=== PATIENT | female | born 1945 | race Caucasian/White ===

== ENCOUNTER 2019-03-11 13:39 | Emergency (ER) | payer MEDICARE, OTHER ==
[~2019-03-11] VITALS: Ht 145 cm; Wt 48.4 kg
--- NOTE | 2019-03-11 14:32 | ED Lower Extremity ---
General Chief Complaint: Lower Extremity Stated Complaint: FALL, WEAKNESS Source: patient Exam Limitations: clinical condition (patient reports she fell while transferring from her wheelchair to a chair sustaining a ground-level fall injuring her left hip however she was tachycardic upon admission since she has some mild precordial chest discomfort and cardiac workup was also provided.) History of Present Illness Date Seen by Provider: Mar 11, 2019 Time Seen by Provider: 13:45 Initial Comments As above patient has fallen during transfer. Patient has injured right hip and right knee although she has no pain on palpation and no ecchymoses but also had tachycardia and cardiac evaluation was provided. Onset: just prior to arrival Pain/Injury Location: right hip, right knee (no evidence of ecchymoses and no pain on range of motion.) Method of Injury: fell Modifying Factors: Improves With Movement (he should also has a left above-knee amputation injury as made her capacity for movement significantly impaired) Allergies and Home Medications Allergies Coded Allergies: No Known Drug Allergies (Unverified , 03/11/19) Patient Home Medication List Home Medication List Reviewed: Yes Review of Systems Constitutional: weakness EENTM: hearing loss (chronic) Respiratory: dyspnea on exertion (initially denied but then reported some chest discomfort and shortness of breath in the emergency room) Cardiovascular: chest pain (initially denied but then reported some chest discomfort in the emergency room) Gastrointestinal: no symptoms reported Genitourinary: no symptoms reported : No Musculoskeletal: back pain, joint pain (right hip and right knee patient has a above-knee amputation on the left), muscle pain (right lower extremity), muscle weakness (patient has bruising on both hands where she says she runs her wheelchair into the door frames) Skin: change in color (bilateral ecchymoses on both hands chronic bumping into the doorframe's) Psychiatric/Neurological: Anxiety (reported that she wanted us to give her some food when she got to the emergency room) Past Fzawukd-Clguuu-Rdqqkg Hx Patient Social History Alcohol Use: Regular Use (and history of alcohol dependence with uncomplicated withdrawal and alcoholic hepatitis without ascites and acute alcoholic gastritis without hemorrhage) Recreational Drug Use: No Smoking Status: Current Everyday Smoker Past Medical History Abdominal (colonoscopy June 2011), Orthopedic (Replacement 2010 femur fracture 2010 prior femur fracture 23 years ago), Rectal (rectal surgery 2011 colostomy 2010 partial hemicolectomy with reanastomosis 2010) Respiratory: Yes COPD (patient has been smoking one pack per day for the past 50 years) Aneurysm (thoracic aortic aneurysm without rupture also abdominal aortic aneurysm without rupture) Neurological: Yes (alcohol withdrawal syndrome) Dementia : No Renal Failure (right kidney disease with acute kidney injury in the past) Gastrointestinal: Yes Irritable Bowel Musculoskeletal: Yes Arthritis, Back Injury Are Your Blood Sugars Over 250: No HEENT: Yes Loss of Vision: Denies Hearing Impairment: Hard of Hearing Anxiety (currently on lorazepam 0.5 mg and has a history of alcohol use disorder ) Integumentary: No Blood Disorders: No Adverse Reaction/Blood Tranf: No Family Medical History CAD Over 55 Years Old (father and brother), Diabetes (sister), Stroke (father and brother) Physical Exam Vital Signs Vital Signs - First Documented 03/11/19 13:40 Temp 36.3 Pulse 113 Resp 16 B/P (MAP) 128/68 (88) Pulse Ox 94 O2 Delivery Room Air Capillary Refill : Less than 1 second Height, Weight, BMI Height: '" Weight: lbs. oz. kg; BMI Method: General Appearance: mild distress (secondary to right hip and right knee pain patient also developed tachycardia and some shortness of breath while in the emergency room cardiac evaluation is pending) HEENT: PERRL/EOMI, normal ENT inspection Neck: non-tender, full range of motion, supple Cardiovascular: regular rate, rhythm, no edema (of the right leg), no gallop, no JVD, no murmur Respiratory: chest non-tender, crackles (secondary to chronic COPD for 50 pack years of smoking), rales (bilateral lobes posterior with deep breathing) Gastrointestinal: normal bowel sounds, non tender, hepatomegaly (and very to chronic alcohol use disorder) Back: normal inspection, no CVA tenderness, decreased range of motion, vertebral tenderness (chronic spasms in the low back) Hips: left hip non-tender, left hip no evidence of injury; right hip limited range of motion (minimal reduction and no pain on flexion and extension and rotation of the right hip), right hip soft tissue tenderness (generalized soft tissue tenderness on the right hip) Knees: right knee soft tissue tenderness (no osseous abnormality however patient does have some tenderness on the lateral aspect of the right knee); left knee other (above-knee amputation left side) Reflexes: 1+ knee (R) 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, alert, oriented x 3 Skin: normal color, warm/dry Lymphatic: no adenopathy Progress/Results/Core Measures Results/Orders Lab Results Laboratory Tests Test 03/11/19 14:30 Range/Units White Blood Count 8.6 4.3-11.0 10^3/uL Red Blood Count 4.94 4.35-5.85 10^6/uL Hemoglobin 13.2 11.5-16.0 G/DL Hematocrit 41 35-52 % Mean Corpuscular Volume 84 80-99 FL Mean Corpuscular Hemoglobin 27 25-34 PG Mean Corpuscular Hemoglobin Concent 32 32-36 G/DL Red Cell Distribution Width 15.1 H 10.0-14.5 % Platelet Count 284 130-400 10^3/uL Mean Platelet Volume 10.1 7.4-10.4 FL Neutrophils (%) (Auto) 65 42-75 % Lymphocytes (%) (Auto) 24 12-44 % Monocytes (%) (Auto) 9 0-12 % Eosinophils (%) (Auto) 1 0-10 % Basophils (%) (Auto) 1 0-10 % Neutrophils # (Auto) 5.6 1.8-7.8 X 10^3 Lymphocytes # (Auto) 2.0 1.0-4.0 X 10^3 Monocytes # (Auto) 0.8 0.0-1.0 X 10^3 Eosinophils # (Auto) 0.1 0.0-0.3 10^3/uL Basophils # (Auto) 0.1 0.0-0.1 10^3/uL Sodium Level 139 135-145 MMOL/L Potassium Level 4.3 3.6-5.0 MMOL/L Chloride Level 99 98-107 MMOL/L Carbon Dioxide Level 27 21-32 MMOL/L Anion Gap 13 5-14 MMOL/L Blood Urea Nitrogen 16 7-18 MG/DL Creatinine 0.55 L 0.60-1.30 MG/DL Estimat Glomerular Filtration Rate > 60 BUN/Creatinine Ratio 29 Glucose Level 93 70-105 MG/DL Calcium Level 9.8 8.5-10.1 MG/DL Corrected Calcium 9.9 8.5-10.1 MG/DL Magnesium Level 1.9 1.6-2.4 MG/DL Total Bilirubin 0.4 0.1-1.0 MG/DL Aspartate Amino Transf (AST/SGOT) 34 5-34 U/L Alanine Aminotransferase (ALT/SGPT) 18 0-55 U/L Alkaline Phosphatase 128 40-136 U/L Troponin I < 0.30 <0.30 NG/ML Total Protein 7.3 6.4-8.2 GM/DL Albumin 3.9 3.2-4.5 GM/DL My Orders Orders - ESPERANZA RAMIRES DO Ekg Tracing (03/11/19 14:09) Hip 2-3 View Right (03/11/19 14:09) Cbc With Automated Diff (03/11/19 14:25) Magnesium (03/11/19 14:25) Chest 1 View Ap/Pa Only (03/11/19 14:25) Comprehensive Metabolic Panel (03/11/19 14:25) Ed Iv/Invasive Line Start (03/11/19 14:25) Troponin I Fs (03/11/19 14:25) Vital Signs/I&O 03/11/19 13:40 Temp 36.3 Pulse 113 Resp 16 B/P (MAP) 128/68 (88) Pulse Ox 94 O2 Delivery Room Air Initial ECG Impression Date: Mar 11, 2019 Initial ECG Impression Time: 14:23 (Sinus tachycardia abnormal R-wave progression with early transition otherwise normal) Counseling-Symptomatic: 3-10 Minutes (patient has a [id number] history of tobacco use and is not interested in tobacco cessation) Departure Impression Primary Impression: Strain of hip Additional Impression: Knee strain Disposition: 01 HOME, SELF-CARE Condition: Stable Departure-Patient Inst. Decision time for Depature: 16:44 Referrals: LIUDMILA GANDARA MD Patient Instructions: Hip Pain, Knee Sprain (DC) Add. Discharge Instructions: Cardiac evaluation for tachycardia shows no signs of ischemic heart disease. Patient has negative x-rays for fracture or dislocation of the hip or knee. On clinical examination patient has slight pain in the hip and knee consistent with a mild strain or sprain. Fall prevention has been emphasized to the patient. Patient should go home hydrate she can use acetaminophen for discomfort of her knee or hip and practice fall prevention. Follow up with Dr. GANDARA. All discharge instructions reviewed with patient and/or family. Voiced understanding. ESPERANZA RAMIRES DO Mar 11, 2019 14:32
[2019-03-11 15:05] LABS: HEMATOCRIT 41 % (35-52); HEMOGLOBIN 13.2 G/DL (11.5-16.0); MEAN CORPUSCULAR HEMOGLOBIN 27 PG (25-34); WHITE BLOOD COUNT 8.6 10^3/uL (4.3-11.0)
[2019-03-11 15:06] LABS: BASOPHILS # (AUTO) 0.1 10^3/uL (0.0-0.1); BASOPHILS % (AUTO) 1 % (0-10); EOSINOPHILS # (AUTO) 0.1 10^3/uL (0.0-0.3); EOSINOPHILS % (AUTO) 1 % (0-10); LYMPHOCYTES % (AUTO) 24 % (12-44); MEAN CORPUSCULAR HGB CONC 32 G/DL (32-36); MEAN CORPUSCULAR VOLUME 84 FL (80-99); MEAN PLATELET VOLUME 10.1 FL (7.4-10.4); MONOCYTES # (AUTO) 0.8 X 10^3 (0.0-1.0); MONOCYTES % (AUTO) 9 % (0-12); NEUTROPHILS # (AUTO) 5.6 X 10^3 (1.8-7.8); NEUTROPHILS % (AUTO) 65 % (42-75); PLATELET COUNT 284 10^3/uL (130-400); RED CELL DISTRIBUTION WIDTH 15.1 % (10.0-14.5)
[2019-03-11 15:15] LABS: ALKALINE PHOSPHATASE 128 U/L (40-136); BILIRUBIN,TOTAL 0.4 MG/DL (0.1-1.0); BUN/CREATININE RATIO 29; CALCIUM 9.8 MG/DL (8.5-10.1); CARBON DIOXIDE 27 MMOL/L (21-32); CHLORIDE 99 MMOL/L (98-107); CREATININE SERUM 0.55 MG/DL (0.60-1.30); GFR ESTIMATED > 60; GLUCOSE 93 MG/DL (70-105); MAGNESIUM 1.9 MG/DL (1.6-2.4); POTASSIUM 4.3 MMOL/L (3.6-5.0); SODIUM 139 MMOL/L (135-145)
[2019-03-11 15:16] LABS: ALANINE AMINOTRANSFERASE 18 U/L (0-55); ALBUMIN 3.9 GM/DL (3.2-4.5); TOTAL PROTEIN 7.3 GM/DL (6.4-8.2)
--- NOTE | 2019-03-11 15:31 | Diagnostic Imaging Report ---
Indication: Fall with chest pain and cough. Comparison: None. Discussion: Single portable upright view of the chest was obtained. Medical devices projected over the right heart. Normal heart size. No focal consolidation, pleural fluid or pneumothorax. No acute osseous abnormality in this single view. Impression: Negative portable chest. Dictated by: Dictated on workstation # [id number]
--- NOTE | 2019-03-11 15:36 | Diagnostic Imaging Report ---
Indication: Fall with right hip pain. Comparison: None. Discussion: AP view of the pelvis and two views of the right hip were obtained. No displaced fracture identified. Postoperative changes are noted within both hips. Bones are markedly osteopenic. Soft tissues are unremarkable. Impression: No acute fracture identified. Dictated by: Dictated on workstation # [id number]
[2019-03-11 17:00] VITALS: BP 118/58
== END 2019-03-11 17:00 | disposition home or self-care (01) ==
LOC: ER FS 13:41
DX: S76.011A Strain of muscle, fascia and tendon of right hip, initial encounter (principal); S86.911A Strain of unspecified muscle(s) and tendon(s) at lower leg level, right leg, initial encounter; F03.90 Unspecified dementia, unspecified severity, without behavioral disturbance, psychotic disturbance, mood disturbance, and anxiety; K58.9 Irritable bowel syndrome, unspecified; J44.9 Chronic obstructive pulmonary disease, unspecified; F41.9 Anxiety disorder, unspecified; Z89.612 Acquired absence of left leg above knee; Z82.49 Family history of ischemic heart disease and other diseases of the circulatory system; W05.0XXA Fall from non-moving wheelchair, initial encounter
CPT/HCPCS: 36415; 71045; 73502; 80053; 83735; 84484; 85025; 93005

== ENCOUNTER 2019-09-27 07:52 | Emergency (ER) | payer MEDICARE, OTHER ==
[~2019-09-27] VITALS: Ht 152 cm; Wt 55.0 kg
--- OUTSIDE RECORDS SUMMARY | 2019-09-27 08:26 | XMS REPORT ---
Author Author Tracy GANDARA Organization [facility] Address [address] [place] [address] Care Team Providers Care Tig Welder Name Role Phone LIUDMILA GANDARA Unavailable PROBLEMS Type Condition ICD9-CM Code [id number] Code Onset Dates Condition S tatus SNOMED Code Problem Compression fracture of thoracic spine, non-trau matic, sequela M48.54XS Oct, Active 3901442 Problem Multiple closed fractures of ribs of right side S22.41XA Oct, Active Problem Pressure ulcer of contiguous region involving back and right buttock, stage 3 L89.43 Oct, Active Problem Anemia D64.9 Feb, Active 8844505 00 Problem History of alcohol abuse Z87.898 Feb, Ac tive 011015259 Problem Acute liver failure without hepatic coma K72.00 Oct, Active 627280728 Problem Lower urinary tract infectious disease N39.0 0 Apr, Active 5091763 Problem Abdominal aortic aneurysm (AAA) without rupture I71.4 Dec, Active 27122246 Problem [place] (acute kidney injury) N17.9 Oct, A ctive 27331219 Problem Acute alcoholic gastritis without hemorrhage K2 9.20 Jul, Active 9665469 Problem Alcohol dependence with uncomplicated withdrawal F10.230 Jul, Active 533186753 Problem Thoracic aortic aneurysm without rupture I71.2 Jul, Active 91358879 Problem Weakness generalized R53.1 Apr, Active 47421668 Problem Vitamin D deficiency E55.9 07 Mar, 2010 Active 56350006 Problem Osteoporosis M81.0 Feb, Active 6485 9006 Problem Elevated liver enzymes R74.8 16 Mar, 2010 Acti ve 798439096 Problem Panlobular emphysema J43.1 Jul, Active 1657398 Problem Status post partial colectomy Z90.49 14 Mar, 11 Active 999037708 Problem Hypokalemia E87.6 02 Apr, 2011 Active 79101 004 Problem Arterial occlusion, 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 08 S ep, 2018 Active 857341003426264 Problem Traumatic rhabdomyolysis T79.6XXA 08 Oct, 2017 Ac tive 557592064 Problem Anxiety F41.9 27 Dec, 2014 Active 0820129 2 Problem Tobacco use Z72.0 09 Dec, 2016 Active 44361 3000 Problem Alcoholic hepatitis without ascites K70.10 27 , 2017 Active 0758805 Problem Centrilobular emphysema J43.2 10 Dec, 2016 Act digna 60280113 ALLERGIES No Information ENCOUNTERS Encounter Location Date Diagnosis [facility] [address] [id number] Oct, [facility] [address] [address] Sep, [facility] [address] [address] Aug, [facility] [place] [address] [address] Jul, [facility] [address] [facility] [place] [address] June, [facility] [address] [address] June, [facility] [address] [facility] [place] [address] June, [facility] [address] [facility] [place] [address] June, Bilateral impacted cerumen H61.23 and Ri ght ear pain H92.01 [facility] [address] [facility] [place] [address] June, Cerumen impaction H61.20 [facility] [address] [address] May, [facility] [address] [address] May, [facility] [address] [address] Apr, [address] [address] Apr, [facility] [address] [id number] [address] [place] [phone] Mar, [facility] [address] [id number] [address] [place] [phone] Mar, [facility] [address] [id number] [address] [place] [phone] Jan, [facility] [address] [id number] [address] [place] [phone] Jan, IMMUNIZATIONS No Known Immunizations SOCIAL HISTORY Never Assessed REASON FOR VISIT medication refill PLAN OF CARE VITAL SIGNS MEDICATIONS Medication Instructions Dosage Frequency Start Date End Date Duration S tatus Ventolin HFA 108 (90 Base) MCG/ACT Inhalation every 6 hrs 2 puffs a s needed 6h Apr, 30 days Active Lorazepam 0.5 MG Orally 4 times a day 1 tablet as needed 6h Jan, 28 days Active RESULTS No Results PROCEDURES No Known procedures INSTRUCTIONS MEDICATIONS ADMINISTERED No Known Medications MEDICAL (GENERAL) HISTORY Type Description Date Medical History peripheral artery disease Medical History COPD Medical History Osteopurosis Medical History 2 aneurysms Surgical History T&A Surgical History Fractured Femoral Cap Surgery right side Surgical History Femur surgery, left side Surgical History 2 colon resections Surgical History Tumor removal from Left Lung Surgical History illiac Stent Surgical History Femoral Artereal Bypass Surgical History Left Leg Amputation Hospitalization History See Surgeries
--- OUTSIDE RECORDS SUMMARY | 2019-09-27 08:26 | XMS REPORT | Continuity of Care Document ---
Author Organization Unknown Address Unknown Phone Unavailable Allergies Active Description Code Type Severity Reaction Onset Reported/Identified Relationship to Patient Clinical Status Yes No Known Drug Allergies [id number] Drug Allergy Unknown N/A 03/11/2019 Medications There is no data. Problems Date Dx Coded Attending Type Code Diagnosis Diagnosed By 03/11/2019 ESPERANZA RAMIRES DO, Ot F03.90 UNSPECIFIED DEMENTIA WITHOUT BEHAVIORAL [facility] F[facility].9 ANXIETY DISORDER, UNSPECIFIED 03/11/2019 [facility] ESPERANZA Ot J44.9 CHRONIC OBSTRUCTIVE PULMONARY DISEASE, U 03/11/2019 [facility] Ot K58.9 IRRITABLE BOWEL SYNDROME WITHOUT DIARRHE 03/11/2019 [facility] Ot R53.1 WEAKNESS 03/11/2019 [facility] Ot S76.011A STRAIN OF MUSCLE, FASCIA AND TENDON OF R 03/11/2019 [facility] Ot S86.911A STRAIN OF UNSP MUSC/TEND AT LOWER LEG LE 03/11/2019 [facility] Ot W05.0XXA FALL FROM NON-MOVING WHEELCHAIR, INITIAL 03/11/2019 [facility] ESPERANZA [place] Ot Z82.49 FAMILY HX OF ISCHEM HEART DIS AND OTH DI 03/11/2019 [facility] Ot Z89.612 ACQUIRED ABSENCE OF LEFT LEG ABOVE KNEE 03/15/2019 [facility] Ot F03.90 UNSPECIFIED DEMENTIA WITHOUT BEHAVIORAL 03/15/2019 [facility] Ot F41.9 ANXIETY DISORDER, UNSPECIFIED 03/15/2019 [facility] Ot J44.9 CHRONIC OBSTRUCTIVE PULMONARY DISEASE, U 03/15/2019 [facility] Ot K58.9 IRRITABLE BOWEL SYNDROME WITHOUT DIARRHE 03/15/2019 [facility], ESPERANZA H Ot R53.1 WEAKNESS 03/15/2019 [facility], ESPERANZA Bhatt Ot S76.011A STRAIN OF MUSCLE, FASCIA AND TENDON OF R 03/15/2019 [facility] Ot S86.911A STRAIN OF UNSP MUSC/TEND AT LOWER LEG LE 03/15/2019 [facility], ESPERANZA Bhatt Ot W05.0XXA FALL FROM NON-MOVING WHEELCHAIR, INITIAL 03/15/2019 [facility], ESPERANZA Bhatt Ot Z82.49 FAMILY HX OF ISCHEM HEART DIS AND OTH DI 03/15/2019 [facility], ESPERANZA Bhatt Ot Z89.612 ACQUIRED ABSENCE OF LEFT LEG ABOVE KNEE Procedures There is no data. Results Test Result Range CBC - 12/28/18 09:06 WHITE BLOOD CELL COUNT 6.0 Thousand/uL 3 .8-10.8 RED BLOOD CELL COUNT 5.35 Million/uL 3.8 0-5.10 HEMOGLOBIN 14.4 g/dL 11.7-15.5 HEMATOCRIT 46.1 % 35.0-45.0 MCV 86.2 fL 80.0-100.0 MCH 26.9 pg 27.0-33.0 MCHC 31.2 g/dL 32.0-36.0 RDW 14.1 % 11.0-15.0 PLATELET COUNT 241 Thousand/uL 140-400 MPV 11.3 fL 7.5-12.5 ABSOLUTE NEUTROPHILS 4158 cells/uL 1500- 7800 ABSOLUTE LYMPHOCYTES 1116 cells/uL 850-3 900 ABSOLUTE MONOCYTES 576 cells/uL 200-950 ABSOLUTE EOSINOPHILS 72 cells/uL 15-500 ABSOLUTE BASOPHILS 78 cells/uL 0-200 NEUTROPHILS 69.3 % NRG LYMPHOCYTES 18.6 % NRG MONOCYTES 9.6 % NRG EOSINOPHILS 1.2 % NRG BASOPHILS 1.3 % NRG Comprehensive metabolic panel - 03/11/19 14:30 Serum or plasma sodium measurement (moles/volume) 139 mmol/L 135-145 Serum or plasma potassium measurement (moles/volume) 4.3 mmol/L 3.6-5.0 Serum or plasma chloride measurement (moles/volume) 99 mmol/L 98-107 Carbon dioxide 27 mmol/L 21-32 Serum or plasma anion gap determination (moles/volume) 13 mmol/L 5-14 Serum or plasma urea nitrogen measurement (mass/volume ) 16 mg/dL 7-18 Serum or plasma creatinine measurement (mass/volume) 0.55 mg/dL 0.60-1.30 Serum or plasma urea nitrogen/creatinine mass ratio 29 NRG Serum or plasma creatinine measurement w ith calculation of estimated glomerular filtration rate > NRG Serum or plasma glucose measurement (mass/volume) 93 mg/dL 70-105 Serum or plasma calcium measurement (mass/volume) 9.8 mg/dL 8.5-10.1 Serum or plasma total bilirubin measurement (mass/volu me) 0.4 mg/dL 0.1-1.0 Serum or plasma alkaline phosphatase matthew surement (enzymatic activity/volume) 128 U/L 40-136 Serum or plasma aspartate aminotransfera se measurement (enzymatic activity/volume) 34 U/L 5-34 Serum or plasma alanine aminotransferase measurement (enzymatic activity/volume) 18 U/L 0-55 Serum or plasma protein measurement (mass/volume) 7.3 g/dL 6.4-8.2 Serum or plasma albumin measurement (mass/volume) 3.9 g/dL 3.2-4.5 CALCIUM CORRECTED 9.9 mg/dL 8.5-10.1 Magnesium - 03/11/19 14:30 Magnesium 1.9 mg/dL 1.6-2.4 Complete blood count (CBC) with automate d white blood cell (WBC) differential - 03/11/19 14:30 Blood leukocytes automated count (number/volume) 8.6 10*3/uL 4.3-11.0 Blood erythrocytes automated count (number/volume) 4.94 10*6/uL 4.35-5.85 Venous blood hemoglobin measurement (mass/volume) 13.2 g/dL 11.5-16.0 Blood hematocrit (volume fraction) 41 % 35-52 Automated erythrocyte mean corpuscular volume 84 [ foz_us] 80-99 Automated erythrocyte mean corpuscular h emoglobin (mass per erythrocyte) 27 pg 25-34 Automated erythrocyte mean corpuscular h emoglobin concentration measurement (mass/volume) 32 g/dL 32-36 Automated erythrocyte distribution width ratio 15. 1 % 10.0- 14.5 Automated blood platelet count (count/volume) 284 10*3/uL 130-400 Automated blood platelet mean volume measurement 10.1 [foz_us] 7.4-10.4 Automated blood neutrophils/100 leukocytes 65 % 42-75 Automated blood lymphocytes/100 leukocytes 24 % 12-44 Blood monocytes/100 leukocytes 9 % 0-12 Automated blood eosinophils/100 leukocytes 1 % 0-10 Automated blood basophils/100 leukocytes 1 % 0-10 Blood neutrophils automated count (number/volume) 5.6 10*3 1.8-7.8 Blood lymphocytes automated count (number/volume) 2.0 10*3 1.0-4.0 Blood monocytes automated count (number/volume) 0. 8 10*3 0.0-1.0 Automated eosinophil count 0.1 10*3/uL 0 .0-0.3 Automated blood basophil count (count/volume) 0.1 10*3/uL 0.0-0.1 TROPONIN I FS - 03/11/19 14:30 TROPONIN I FS < 0.30 <0.30 LIPID PANEL - 03/28/19 11:05 CHOLESTEROL, TOTAL 101 mg/dL <200 HDL CHOLESTEROL 42 mg/dL > OR = 50 TRIGLYCERIDES 83 mg/dL <150 LDL-CHOLESTEROL 42 mg/dL (calc) NRG CHOL/HDLC RATIO 2.4 (calc) <5.0 NON HDL CHOLESTEROL 59 mg/dL (calc) <130 CMP - 03/28/19 11:05 GLUCOSE 104 mg/dL 65-99 UREA NITROGEN (BUN) 19 mg/dL 7-25 CREATININE 0.55 mg/dL 0.60-0.93 eGFR NON-AFR. GUINEAN 92 mL/min/1.73m2 > OR = 60 eGFR 106 mL/min/1.73m2 > OR = 60 BUN/CREATININE RATIO 35 (calc) 6-22 SODIUM 145 mmol/L 135-146 POTASSIUM 4.1 mmol/L 3.5-5.3 CHLORIDE 107 mmol/L 98-110 CARBON DIOXIDE 28 mmol/L 20-32 CALCIUM 10.3 mg/dL 8.6-10.4 PROTEIN, TOTAL 7.1 g/dL 6.1-8.1 ALBUMIN 3.9 g/dL 3.6-5.1 GLOBULIN 3.2 g/dL (calc) 1.9-3.7 ALBUMIN/GLOBULIN RATIO 1.2 (calc) 1.0-2. 5 BILIRUBIN, TOTAL 0.5 mg/dL 0.2-1.2 ALKALINE PHOSPHATASE 106 U/L 37-153 AST 21 U/L 10-35 ALT 18 U/L 6-29 Encounters ACCT No. Visit Date/Time Discharge Status Pt. Type Provider Facility Loc./Unit Complaint [id number] 03/28/2019 08:30:00 03/28/2019 23:59: 59 CLS [id number] 03/28/2019 09:00:00 Document Registration [id number] 12/28/2018 09:00:00 Document Registration [id number] 03/11/2019 13:41:00 020 17:00:00 DIS Emergency ESPERANZA RAMIRES DO [facility] ER FS FALL, WEAKNESS [id number] 09/27/2019 07:53:[address] Emergency SHARLENE FISHER DO [facility] ER FS BACK PAIN
[2019-09-27] MEDS ORDERED: KETOROLAC 30 MG/ML VIAL IVP ONE (08:30)
[2019-09-27] MEDS ORDERED: fentaNYL INJECTION 100 MCG/2 ML AMP IVP ONE (08:30)
[2019-09-27] MEDS ORDERED: ONDANSETRON 4 MG/2 ML (SDV) Z0FRAN IVP ONE (08:30)
[2019-09-27] MEDS ORDERED: NS IV 1000 ML 1,000 ML IV SCH (08:30)
[2019-09-27 08:32] LABS: BILIRUBIN,URINE NEGATIVE (NEGATIVE); CLARITY,URINE SLT CLOUDY; COLOR,URINE YELLOW; GLUCOSE, URINE (UA) NEGATIVE (NEGATIVE); KETONES,URINE 1+ (NEGATIVE); NITRITE,URINE NEGATIVE (NEGATIVE); PH,URINE 5.5 (5-9); PROTEIN,URINE TRACE (NEGATIVE)
[2019-09-27 08:33] LABS: BACTERIA,URINE MODERATE /HPF; HYALINE CASTS, URINE 0-2 /LPF; LEUKOCYTE ESTERASE ,URINE TRACE (NEGATIVE); RBC,URINE 0-2 /HPF
[2019-09-27 08:41] LABS: EOSINOPHILS % (AUTO) 0 % (0-10); HEMATOCRIT 45 % (35-52); HEMOGLOBIN 14.7 G/DL (11.5-16.0); MEAN CORPUSCULAR HEMOGLOBIN 27 PG (25-34); MEAN CORPUSCULAR HGB CONC 33 G/DL (32-36); MEAN CORPUSCULAR VOLUME 83 FL (80-99); PLATELET COUNT 232 10^3/uL (130-400); RED CELL DISTRIBUTION WIDTH 15.9 % (10.0-14.5); WHITE BLOOD COUNT 14.5 10^3/uL (4.3-11.0)
[2019-09-27 08:42] LABS: BASOPHILS # (AUTO) 0.1 10^3/uL (0.0-0.1); BASOPHILS % (AUTO) 0 % (0-10); LYMPHOCYTES # (AUTO) 1.5 X 10^3 (1.0-4.0); LYMPHOCYTES % (AUTO) 10 % (12-44); MEAN PLATELET VOLUME 10.6 FL (7.4-10.4); MONOCYTES # (AUTO) 1.3 X 10^3 (0.0-1.0); MONOCYTES % (AUTO) 9 % (0-12); NEUTROPHILS # (AUTO) 11.6 X 10^3 (1.8-7.8); NEUTROPHILS % (AUTO) 80 % (42-75)
--- NOTE | 2019-09-27 08:58 | ED General ---
General Chief Complaint: Back Problems Stated Complaint: BACK PAIN Nursing Triage Note: PT IS A LEG SIDE BKA AND USES A WALKER WHEN SHE IS NOT USING HER PROSTHESIS AND SHE HOPS. SHE FELL ON HER BUTTOCKS ON WEDNESDAY. EMS FOUND A 5TH OF VODKA IN THE PTS BED WITH HER. Nursing Sepsis Screen: No Definite Risk History of Present Illness Date Seen by Provider: Sep 27, 2019 Time Seen by Provider: 08:55 Initial Comments Patient presenting to emergency department for evaluation of pain status post fall. She said 2 days ago she was ambulating at her baseline with a walker and hopping and she has a partial amputation on her left leg and she said that she fell landing directly on her bottom and it has been increasing in pain since that time. She hurts primarily in the pelvis region and low back. She denies any weakness numbness tingling bowel or bladder incontinence. She does have a cough on exam and she says she smokes cigarettes daily and has a history of COPD. She is in no obvious distress and nontoxic. Allergies and Home Medications Allergies Coded Allergies: No Known Drug Allergies (Unverified , 03/11/19) Home Medications Cephalexin 500 Mg Capsule, 500 MG PO BID Prescribed by: SHARLENE FISHER on 09/27/19 1056 Hydrocodone/Acetaminophen 1 Each Tablet, 1 EACH PO Q6H PRN for PAIN-SEVERE (8- 10) Prescribed by: SHARLENE FISHER on 09/27/19 1056 Ibuprofen 400 Mg Tablet, 400 MG PO Q6H PRN for PAIN Prescribed by: SHARLENE FISHER on 09/27/19 1056 Patient Home Medication List Home Medication List Reviewed: Yes Review of Systems Review of Systems Constitutional: no symptoms reported EENTM: no symptoms reported Respiratory: cough Cardiovascular: no symptoms reported Gastrointestinal: no symptoms reported Genitourinary: no symptoms reported Musculoskeletal: back pain Skin: no symptoms reported Psychiatric/Neurological: No Symptoms Reported All Other Systems Reviewed Negative Unless Noted: Yes Past Jfvwmuw-Reuypv-Qxzplf Hx Patient Social History Alcohol Use: Regular Use Alcohol Beverage of Choice: Vodka Recreational Drug Use: No Smoking Status: Current Everyday Smoker Type Used: Cigarettes 2nd Hand Smoke Exposure: No Recent Foreign Travel: No Contact w/Someone Who Travel: No Recent Infectious Disease Expo: No Recent Hopitalizations: No Physical Abuse: No Sexual Abuse: No Mistreated: No Fear: No Seasonal Allergies Seasonal Allergies: No Past Medical History Surgeries: Yes (AKA, Hip Replacement, ORIF) Abdominal, Orthopedic, Rectal Respiratory: Yes COPD Cardiac: Yes (AAA, Artierial Occlusion Lower Extremity, Thoracic aortic aneurysm) Aneurysm Neurological: Yes (alcohol withdrawal syndrome) Dementia Genitourinary: Yes (UTI's) Renal Failure Gastrointestinal: Yes Irritable Bowel Musculoskeletal: Yes Arthritis, Back Injury Endocrine: No HEENT: Yes Glaucoma Loss of Vision: Denies Hearing Impairment: Hard of Hearing Cancer: No Psychosocial: No Anxiety Integumentary: No Blood Disorders: No Adverse Reaction/Blood Tranf: No Family Medical History CAD Over 55 Years Old, Diabetes, Stroke Physical Exam Vital Signs Vital Signs - First Documented 09/27/19 07:52 Temp 36.4 Pulse 136 Resp 18 B/P (MAP) 137/65 (89) Pulse Ox 90 O2 Delivery Room Air Capillary Refill : Less Than 3 Seconds Height, Weight, BMI Height: '" Weight: lbs. oz. kg; 23.00 BMI Method: General Appearance: No Apparent Distress, WD/WN HEENT: PERRL/EOMI Neck: Supple Respiratory: Decreased Breath Sounds, Wheezing Cardiovascular: No Edema, Tachycardia Gastrointestinal: Non Tender, Soft Back: Other (pelvis pain to palpation bilaterally as well as midline L-spine tenderness to palpation) Extremity: Normal Capillary Refill Neurologic/Psychiatric: Alert, Oriented x3 Skin: Warm/Dry Progress/Results/Core Measures Suspected Sepsis Recent Fever Within 48 Hours: No Infection Criteria Present: None New/Unexplained Altered Menta: No Sepsis Screen: No Definite Risk SIRS Temperature: Pulse: 136 Respiratory Rate: 18 Laboratory Tests 09/27/19 08:25: White Blood Count 14.5H Blood Pressure 137 /65 Mean: 89 Laboratory Tests 09/27/19 08:25: Creatinine 0.67, INR Comment 1.1, Platelet Count 232, Total Bilirubin 0.9 Results/Orders Lab Results Laboratory Tests Test 09/27/19 08:20 09/27/19 08:25 Range/Units Urine Color YELLOW Urine Clarity SLT CLOUDY Urine pH 5.5 5-9 Urine Specific [place] >=1030 1.016-1.022 Urine Protein TRACE H NEGATIVE Urine Glucose (UA) NEGATIVE NEGATIVE Urine Ketones 1+ H NEGATIVE Urine Nitrite NEGATIVE NEGATIVE Urine Bilirubin NEGATIVE NEGATIVE Urine Urobilinogen 0.2 < = 1.0 MG/DL Urine Leukocyte Esterase TRACE H NEGATIVE Urine RBC (Auto) TRACE H NEGATIVE Urine RBC 0-2 /HPF Urine WBC 10-25 H /HPF Urine Squamous Epithelial Cells 2-5 /HPF Urine Crystals NONE /LPF Urine Bacteria MODERATE H /HPF Urine Casts PRESENT /LPF Urine Hyaline Casts 0-2 H /LPF Urine Mucus MODERATE H /LPF Urine Culture Indicated YES White Blood Count 14.5 H 4.3-11.0 10^3/uL Red Blood Count 5.40 4.35-5.85 10^6/uL Hemoglobin 14.7 11.5-16.0 G/DL Hematocrit 45 35-52 % Mean Corpuscular Volume 83 80-99 FL Mean Corpuscular Hemoglobin 27 25-34 PG Mean Corpuscular Hemoglobin Concent 33 32-36 G/DL Red Cell Distribution Width 15.9 H 10.0-14.5 % Platelet Count 232 130-400 10^3/uL Mean Platelet Volume 10.6 H 7.4-10.4 FL Neutrophils (%) (Auto) 80 H 42-75 % Lymphocytes (%) (Auto) 10 L 12-44 % Monocytes (%) (Auto) 9 0-12 % Eosinophils (%) (Auto) 0 0-10 % Basophils (%) (Auto) 0 0-10 % Neutrophils # (Auto) 11.6 H 1.8-7.8 X 10^3 Lymphocytes # (Auto) 1.5 1.0-4.0 X 10^3 Monocytes # (Auto) 1.3 H 0.0-1.0 X 10^3 Eosinophils # (Auto) 0.0 0.0-0.3 10^3/uL Basophils # (Auto) 0.1 0.0-0.1 10^3/uL Neutrophils % (Manual) 81 % Lymphocytes % (Manual) 9 % Monocytes % (Manual) 6 % Eosinophils % (Manual) 0 % Basophils % (Manual) 0 % Metamyelocytes % 0 % Myelocytes % 1 % Band Neutrophils 3 % Prothrombin Time 14.3 12.2-14.7 SEC INR Comment 1.1 0.8-1.4 Activated Partial Thromboplast Time 27 24-35 SEC Sodium Level 138 135-145 MMOL/L Potassium Level 4.5 3.6-5.0 MMOL/L Chloride Level 101 98-107 MMOL/L Carbon Dioxide Level 22 21-32 MMOL/L Anion Gap 15 H 5-14 MMOL/L Blood Urea Nitrogen 28 H 7-18 MG/DL Creatinine 0.67 0.60-1.30 MG/DL Estimat Glomerular Filtration Rate > 60 BUN/Creatinine Ratio 42 Glucose Level 146 H 70-105 MG/DL Calcium Level 10.0 8.5-10.1 MG/DL Corrected Calcium 10.0 8.5-10.1 MG/DL Magnesium Level 2.2 1.6-2.4 MG/DL Total Bilirubin 0.9 0.1-1.0 MG/DL Aspartate Amino Transf (AST/SGOT) 71 H 5-34 U/L Alanine Aminotransferase (ALT/SGPT) 33 0-55 U/L Alkaline Phosphatase 114 40-136 U/L Total Protein 7.2 6.4-8.2 GM/DL Albumin 4.0 3.2-4.5 GM/DL Serum Alcohol < 10 <10 MG/DL My Orders Orders - SHARLENE FISHER DO Cbc With Automated Diff (09/27/19 08:18) Comprehensive Metabolic Panel (09/27/19 08:18) Ua Culture If Indicated (09/27/19 08:18) Partial Thromboplastin Time (09/27/19 08:18) Protime With Inr (09/27/19 08:18) Magnesium (09/27/19 08:18) Alcohol (09/27/19 08:18) Iv/Invasive Line Insertion .IV start (09/27/19 08:18) Ct Chest/Abdomen/Pelvis Wo (09/27/19 08:18) Ns Iv 1000 Ml (Sodium Chloride 0.9%) (09/27/19 08:30) Ketorolac Injection (Toradol Injection) (09/27/19 08:30) Fentanyl Injection (Sublimaze Injection (09/27/19 08:30) Ondansetron Injection (Zofran Injectio (09/27/19 08:30) Urine Culture (09/27/19 08:20) Manual Differential (09/27/19 08:25) Hydrocodone/Apap 5/325 Tablet (Lortab 5 (09/27/19 10:15) Medications Given in ED Current Medications Medications Dose Ordered Sig/Katrina Route Start Time Stop Time Status Last Admin Dose Admin Fentanyl Citrate 50 mcg ONCE ONCE IVP 09/27/19 08:30 09/27/19 08:31 DC 09/27/19 08:33 50 MCG Ketorolac Tromethamine 15 mg ONCE ONCE IVP 09/27/19 08:30 09/27/19 08:31 DC 09/27/19 08:32 15 MG Ondansetron HCl 4 mg ONCE ONCE IVP 09/27/19 08:30 09/27/19 08:31 DC 09/27/19 08:32 4 MG Vital Signs/I&O 09/27/19 07:52 Temp 36.4 Pulse 136 Resp 18 B/P (MAP) 137/65 (89) Pulse Ox 90 O2 Delivery Room Air Capillary Refill : Less Than 3 Seconds Blood Pressure Mean: 89 Progress Note : Progress Note Will check imaging treat symptoms and reassess. Patient has signs of leukocytosis on laboratory evaluation and possible dehydration as well as her BUNs elevated and she has an elevated specific gravity. She has signs of urinary tract infection on her urinalysis. Her CT imaging showed no acute surgical pathology but she has multiple compression fractures throughout her thoracic and lumbar spine and the radiologist commented to me that he does not think there is any new compression fracture rather these are all old. I explained all the findings the patient and she says she does fall frequently. She denies any weakness numbness or tingling and her neurologic exam is at baseline with intact strength and movement in her lower extremities. Patient was offered admission given her decreased mobility and multiple health problems but she refused stating that she rather go home and try and manage her pain at home. She says she has multiple people to help her including people who come and clean her house give her a bath and a neighbor that helps her. Her DURABLE POWER OF PROGRAM DIRECTOR/MUSIC DIRECTOR is Trista Marin and I spoke to her on the phone and she said she would notify all of her help that she may need extra help and that she would be able to hopefully come and pick her up and help her as well. I told her if there is any concerns about her safety and if she is not managing well at home she could otherwise be be brought back to the emergency department and should likely be transferred to another hospital for pain control and possible rehabilitation at that time. Patient and her DURABLE POWER OF PROGRAM DIRECTOR/MUSIC DIRECTOR who are aware and agreeable of all the diagnoses and incidental findings and the need for follow-up for these incidental findings. They verbalized understanding of the need for short-term follow-up and strict ED return precautions discussed equally worsening pain neurologic changes or other general concerns. Of note she was initially tachycardic likely from pain but her repeat heart rate was 110 and she said she usually is tachycardic in the 110 range. Departure Impression Primary Impression: Compression fx, lumbar spine Additional Impression: UTI (urinary tract infection) Disposition: 01 HOME, SELF-CARE Condition: Stable Departure-Patient Inst. Scripts Ibuprofen (Ibuprofen) 400 Mg Tablet 400 MG PO Q6H PRN for PAIN for 7 Days, TAB Prov: SHARLENE FISHER DO 09/27/19 Cephalexin (Keflex) 500 Mg Capsule 500 MG PO BID for 7 Days, CAP Prov: SHARLENE FISHER DO 09/27/19 Hydrocodone/Acetaminophen (Hydrocodone-Acetamin 5-325 mg) 1 Each Tablet 1 EACH PO Q6H PRN for PAIN-SEVERE (8-10), #20 TAB Prov: SHARLENE FISHER DO 09/27/19 SHARLENE FISHER DO Sep 27, 2019 08:58
[2019-09-27 09:00] LABS: INR 1.1 (0.8-1.4); PROTHROMBIN TIME PATIENT 14.3 SEC (12.2-14.7)
[2019-09-27 09:02] LABS: ALANINE AMINOTRANSFERASE 33 U/L (0-55); ALKALINE PHOSPHATASE 114 U/L (40-136); BILIRUBIN,TOTAL 0.9 MG/DL (0.1-1.0); BUN/CREATININE RATIO 42; CARBON DIOXIDE 22 MMOL/L (21-32); CHLORIDE 101 MMOL/L (98-107); CREATININE SERUM 0.67 MG/DL (0.60-1.30); GFR ESTIMATED > 60; GLUCOSE 146 MG/DL (70-105); MAGNESIUM 2.2 MG/DL (1.6-2.4); POTASSIUM 4.5 MMOL/L (3.6-5.0); SODIUM 138 MMOL/L (135-145); TOTAL PROTEIN 7.2 GM/DL (6.4-8.2)
[2019-09-27 09:20] LABS: BAND NEUTROPHILS 3 %; BASOPHILS % (MANUAL) 0 %; EOSINOPHILS % (MANUAL) 0 %; LYMPHOCYTES % (MANUAL) 9 %; METAMYELOCYTES % 0 %; MONOCYTES % (MANUAL) 6 %; MYELOCYTES % 1 %; NEUTROPHILS % (MANUAL) 81 %
[2019-09-27] MEDS ORDERED: HYDROcodone/APAP 5 MG/325 MG (LORTAB) TAB PO ONE (10:15)
--- NOTE | 2019-09-27 10:28 | Diagnostic Imaging Report ---
PROCEDURE: CT chest, abdomen, and pelvis without contrast. TECHNIQUE: Multiple contiguous axial images were obtained through the chest, abdomen, and pelvis without the use of intravenous contrast. Auto Exposure Controls were utilized during the CT exam to meet ALARA standards for radiation dose reduction. INDICATION: Cough and pelvic pain, fall. CT CHEST: The thoracic aorta appears to be ectatic and tortuous. There is some aneurysmal dilatation of the aortic arch measuring up to 4.4 cm. Descending thoracic aorta measures 4.0 cm AP. Aorta is calcified. No pericardial or pleural fluid is detected. There are areas of parenchymal scarring or atelectasis in the lingula and right lower lobe. No mass or consolidation is identified. There is hyperkyphotic curvature to the thoracic spine. Midthoracic compression fractures are noted, age indeterminate. IMPRESSION: Thoracic aortic arch and descending aortic aneurysmal dilatation as well as generalized ectasia and tortuosity. There is subsegmental atelectatic changes in the lingula and right middle lobe. There is multilevel compression fracture deformities in thoracic spine, age indeterminate. No other abnormality is detected. CT abdomen and pelvis: Liver is unremarkable. Pancreas and spleen are unremarkable. No adrenal mass is detected. Kidneys are unremarkable. Infrarenal abdominal aorta is aneurysmal measuring up to 4.0 cm AP. Patient does have a large right para-midline ventral hernia containing bowel loops. This appears to contain portions of the colon. The herniated loop is dilated but no wall thickening is seen. There are also additional bowel loops present in the hernia sac which may represent small bowel loops. Uterus and bladder are unremarkable. There is no free fluid or fluid collection identified. Generalized central compression fracture deformities in the lumbar spine are noted, age indeterminate. IMPRESSION: 1. Infrarenal abdominal aortic aneurysm measuring 4 cm in size. 2. Large right para-midline ventral hernia containing small and large bowel loops. 3. Age indeterminate lumbar compression fracture deformities. Dictated by: Dictated on workstation # [id number]
[2019-09-27] MEDS ORDERED: CEPH-507 PO (10:56)
[2019-09-27] MEDS ORDERED: IBUP-1779 PO (10:56)
[2019-09-27] MEDS ORDERED: HYDR-3812 PO (10:56)
[2019-09-27 11:27] VITALS: BP 124/68
== END 2019-09-27 11:25 | disposition home or self-care (01) ==
LOC: EDUNIT# 07:52 → ER FS 07:53
DX: S32.009A Unspecified fracture of unspecified lumbar vertebra, initial encounter for closed fracture (principal); N39.0 Urinary tract infection, site not specified; F17.210 Nicotine dependence, cigarettes, uncomplicated; Z89.612 Acquired absence of left leg above knee; Z96.649 Presence of unspecified artificial hip joint; W19.XXXA Unspecified fall, initial encounter; Y93.01 Activity, walking, marching and hiking
CPT/HCPCS: 36415; 71250; 74176; 80053; 81000; 83735; 85007; 85027; 85610; 85730; 87088; 96374; 96375; 99284; G0480; 80320

== ENCOUNTER 2019-09-28 19:18 | Emergency (ER) | payer MEDICARE, OTHER ==
[~2019-09-28 19:18] MED LIST: CEPH-507 PO; HYDR-3812 PO; IBUP-1779 PO
[2019-09-28] MEDS ORDERED: NS IV 1000 ML 1,000 ML IV SCH (19:45)
[2019-09-28] MEDS ORDERED: CEFEPIME INJECTION 2,000 MG in WATER (STERILE) FOR INJECTION 20 ML IV ONE (19:45)
[2019-09-28 19:52] LABS: BASOPHILS % (AUTO) 0 % (0-10); EOSINOPHILS % (AUTO) 0 % (0-10); HEMATOCRIT 39 % (35-52); HEMOGLOBIN 12.7 G/DL (11.5-16.0); LYMPHOCYTES % (AUTO) 15 % (12-44); MEAN CORPUSCULAR HEMOGLOBIN 27 PG (25-34); MEAN CORPUSCULAR HGB CONC 32 G/DL (32-36); MEAN CORPUSCULAR VOLUME 84 FL (80-99); MEAN PLATELET VOLUME 11.4 FL (7.4-10.4); MONOCYTES # (AUTO) 1.2 X 10^3 (0.0-1.0); MONOCYTES % (AUTO) 9 % (0-12); NEUTROPHILS # (AUTO) 9.6 X 10^3 (1.8-7.8); NEUTROPHILS % (AUTO) 75 % (42-75); PLATELET COUNT 180 10^3/uL (130-400); RED CELL DISTRIBUTION WIDTH 16.8 % (10.0-14.5); WHITE BLOOD COUNT 12.9 10^3/uL (4.3-11.0)
--- OUTSIDE RECORDS SUMMARY | 2019-09-28 19:59 | XMS REPORT | Continuity of Care Document ---
Author Organization Unknown Address Unknown Phone Unavailable Allergies Active Description Code Type Severity Reaction Onset Reported/Identified Relationship to Patient Clinical Status Yes No Known Drug Allergies [id number] Drug Allergy Unknown N/A 03/11/2019 Medications There is no data. Problems Date Dx Coded Attending Type Code Diagnosis Diagnosed By 03/11/2019 ESPERANZA RAMIRES DO, Ot F03.90 UNSPECIFIED DEMENTIA WITHOUT BEHAVIORAL [facility]9 ANXIETY DISORDER, UNSPECIFIED 03/11/2019 [facility] ESPERANZA Ot J44.9 CHRONIC OBSTRUCTIVE [...] W05.0XXA FALL FROM NON-MOVING WHEELCHAIR, INITIAL 03/11/2019 [facility] ESPERANZA BARKSDALE Ot Z82.49 FAMILY [...] 7-25 CREATININE 0.55 mg/dL 0.60-0.93 eGFR NON-AFR. CITIZEN [place] 92 mL/min/1.73m2 > OR = 60 eGFR [...] 21 U/L 10-35 ALT 18 U/L 6-29 Complete urinalysis with reflex to cultu re - 09/27/19 08:20 Urine color determination YELLOW NRG Urine clarity determination SLT CLOUDY NRG Urine pH measurement by test strip 5.5 5-9 Specific gravity of urine by test strip >= 1.016-1.022 Urine protein assay by test strip, semi-quantitative TRACE NEGATIVE Urine glucose detection by automated test strip NE GATIVE NEGATIVE Erythrocytes detection in urine sediment by light micr oscopy TRACE NEGATIVE Urine ketones detection by automated test strip 1+ NEGATIVE Urine nitrite detection by test strip NEGATIVE NEGATIVE Urine total bilirubin detection by test strip NEGA TIVE NEGATIVE Urine urobilinogen measurement by automated test strip (mass/volume) 0.2 mg/dL < = 1.0 Urine leukocyte esterase detection by dipstick TRA CE NEGATIVE Automated urine sediment erythrocyte cou nt by microscopy (number/high power field) [HPF] NRG Automated urine sediment leukocyte count by microscopy (number/high power field) [HPF] NRG Bacteria detection in urine sediment by light microsco py MODERATE NRG Squamous epithelial cells detection in u rine sediment by light microscopy 2-5 NRG Crystals detection in urine sediment by light microsco py NONE NRG Casts detection in urine sediment by light microscopy PRESENT NRG Mucus detection in urine sediment by light microscopy MODERATE NRG Complete urinalysis with reflex to culture YES NRG Hyaline casts detection in urine sediment by light anupam roscopy 0-2 NRG Complete blood count (CBC) with automate d white blood cell (WBC) differential - 09/27/19 08:25 Blood leukocytes automated count (number/volume) 14.5 10*3/uL 4.3-11.0 Blood erythrocytes automated count (number/volume) 5.40 10*6/uL 4.35-5.85 Venous blood hemoglobin measurement (mass/volume) 14.7 g/dL 11.5-16.0 Blood hematocrit (volume fraction) 45 % 35-52 Automated erythrocyte mean corpuscular volume 83 [ foz_us] 80-99 Automated erythrocyte mean corpuscular h emoglobin (mass per erythrocyte) 27 pg 25-34 Automated erythrocyte mean corpuscular h emoglobin concentration measurement (mass/volume) 33 g/dL 32-36 Automated erythrocyte distribution width ratio 15. 9 % 10.0- 14.5 Automated blood platelet count (count/volume) 232 10*3/uL 130-400 Automated blood platelet mean volume measurement 10.6 [foz_us] 7.4-10.4 Automated blood neutrophils/100 leukocytes 80 % 42-75 Automated blood lymphocytes/100 leukocytes 10 % 12-44 Blood monocytes/100 leukocytes 9 % 0-12 Automated blood eosinophils/100 leukocytes 0 % 0-10 Automated blood basophils/100 leukocytes 0 % 0-10 Blood neutrophils automated count (number/volume) 11.6 10*3 1.8-7.8 Blood lymphocytes automated count (number/volume) 1.5 10*3 1.0-4.0 Blood monocytes automated count (number/volume) 1. 3 10*3 0.0-1.0 Automated eosinophil count 0.0 10*3/uL 0 .0-0.3 Automated blood basophil count (count/volume) 0.1 10*3/uL 0.0-0.1 PT panel in platelet poor plasma by coag ulation assay - 09/27/19 08:25 Prothrombin time (PT) in platelet poor plasma by coagu lation assay 14.3 s 12.2-14.7 INR in platelet poor plasma or blood by coagulation as say 1.1 0.8-1.4 Activated partial thromboplastin time (a PTT) in platelet poor plasma bycoagulation assay - 09/27/19 08:25 Activated partial thromboplastin time (a PTT) in platelet poor plasma bycoagulation assay 27 s 24-35 Comprehensive metabolic panel - 09/27/19 08:25 Serum or plasma sodium measurement (moles/volume) 138 mmol/L 135-145 Serum or plasma potassium measurement (moles/volume) 4.5 mmol/L 3.6-5.0 Serum or plasma chloride measurement (moles/volume) 101 mmol/L 98-107 Carbon dioxide 22 mmol/L 21-32 Serum or plasma anion gap determination (moles/volume) 15 mmol/L 5-14 Serum or plasma urea nitrogen measurement (mass/volume ) 28 mg/dL 7-18 Serum or plasma creatinine measurement (mass/volume) 0.67 mg/dL 0.60-1.30 Serum or plasma urea nitrogen/creatinine mass ratio 42 NRG Serum or plasma creatinine measurement w ith calculation of estimated glomerular filtration rate > NRG Serum or plasma glucose measurement (mass/volume) 146 mg/dL 70-105 Serum or plasma calcium measurement (mass/volume) 10.0 mg/dL 8.5-10.1 Serum or plasma total bilirubin measurement (mass/volu me) 0.9 mg/dL 0.1-1.0 Serum or plasma alkaline phosphatase matthew surement (enzymatic activity/volume) 114 U/L 40-136 Serum or plasma aspartate aminotransfera se measurement (enzymatic activity/volume) 71 U/L 5-34 Serum or plasma alanine aminotransferase measurement (enzymatic activity/volume) 33 U/L 0-55 Serum or plasma protein measurement (mass/volume) 7.2 g/dL 6.4-8.2 Serum or plasma albumin measurement (mass/volume) 4.0 g/dL 3.2-4.5 CALCIUM CORRECTED 10.0 mg/dL 8.5-10.1 Magnesium - 09/27/19 08:25 Magnesium 2.2 mg/dL 1.6-2.4 Serum or plasma ethanol measurement (mas s/volume) - 09/27/19 08:25 Serum or plasma ethanol measurement (mass/volume) < mg/dL <10 Manual absolute plasma cell count - 07/11 08:25 Blood monocytes/100 leukocytes 6 % NRG Manual blood segmented neutrophils/100 leukocytes 81 % NRG Blood band neutrophils/100 leukocytes 3 % NRG Manual blood lymphocytes/100 leukocytes 9 % NRG Manual eosinophils/100 leukocytes in nose 0 % NRG Manual blood basophils/100 leukocytes 0 % NRG Manual blood metamyelocytes/100 leukocytes 0 % NRG Manual blood myelocytes/100 leukocytes 1 % NRG Complete blood count (CBC) with automate d white blood cell (WBC) differential - 09/28/19 19:34 Blood leukocytes automated count (number/volume) 12.9 10*3/uL 4.3-11.0 Blood erythrocytes automated count (number/volume) 4.68 10*6/uL 4.35-5.85 Venous blood hemoglobin measurement (mass/volume) 12.7 g/dL 11.5-16.0 Blood hematocrit (volume fraction) 39 % 35-52 Automated erythrocyte mean corpuscular volume 84 [ foz_us] 80-99 Automated erythrocyte mean corpuscular h emoglobin (mass per erythrocyte) 27 pg 25-34 Automated erythrocyte mean corpuscular h emoglobin concentration measurement (mass/volume) 32 g/dL 32-36 Automated erythrocyte distribution width ratio 16. 8 % 10.0- 14.5 Automated blood platelet count (count/volume) 180 10*3/uL 130-400 Automated blood platelet mean volume measurement 11.4 [foz_us] 7.4-10.4 Automated blood neutrophils/100 leukocytes 75 % 42-75 Automated blood lymphocytes/100 leukocytes 15 % 12-44 Blood monocytes/100 leukocytes 9 % 0-12 Automated blood eosinophils/100 leukocytes 0 % 0-10 Automated blood basophils/100 leukocytes 0 % 0-10 Blood neutrophils automated count (number/volume) 9.6 10*3 1.8-7.8 Blood lymphocytes automated count (number/volume) 2.0 10*3 1.0-4.0 Blood monocytes automated count (number/volume) 1. 2 10*3 0.0-1.0 Automated eosinophil count 0.0 10*3/uL 0 .0-0.3 Automated blood basophil count (count/volume) 0.0 10*3/uL 0.0-0.1 Encounters ACCT No. Visit Date/Time Discharge Status Pt. Type Provider Facility Loc./Unit Complaint [id number] 03/28/2019 08:30:00 03/28/2019 23:59: [facility] Outpatient LIUDMILA GANDARA [facility] [id number] 03/28/2019 09:00:00 Document Registration [id number] 12/28/2018 09:00:00 Document Registration [id number] 09/27/2019 07:53:00 11:25:00 DIS Emergency SHARLENE FISHER DO [facility] ER FS BACK PAIN [id number] 03/11/2019 13:41:00 020 17:00:00 DIS Emergency ESPERANZA RAMIRES DO [facility] ER FS FALL, WEAKNESS [id number] 09/28/2019 19:53:00 Document Registration
[2019-09-28] MEDS ORDERED: NOREPINEPHRINE 4 MG/250 ML 250 ML IV SCH (20:00)
[2019-09-28 20:14] LABS: CREATININE SERUM 1.65 MG/DL (0.60-1.30); POTASSIUM 4.9 MMOL/L (3.6-5.0)
[2019-09-28 20:15] LABS: ALBUMIN 3.6 GM/DL (3.2-4.5); BILIRUBIN,TOTAL 0.5 MG/DL (0.1-1.0); CALCIUM 9.6 MG/DL (8.5-10.1); TOTAL PROTEIN 6.7 GM/DL (6.4-8.2)
[2019-09-28] MEDS ORDERED: MIDAZOLAM 5 MG/5 ML (VERSED) VIAL IVP ONE (20:15)
[2019-09-28] MEDS ORDERED: SUCCINYLCHOLINE INJ 100 MG/5 ML SYR INJ ONE (20:15)
[2019-09-28] MEDS ORDERED: ETOMIDATE IV SOLN 20 MG/10 ML VIAL IV ONE (20:15)
[2019-09-28] MEDS ORDERED: ONDANSETRON 4 MG/2 ML (SDV) Z0FRAN IVP ONE (21:30)
--- NOTE | 2019-09-28 21:42 | Diagnostic Imaging Report ---
INDICATION: Weakness and cough and fever. EXAMINATION: Frontal chest obtained at 8:56 p.m. COMPARISON: 03/11/2019. FINDINGS: There is cardiomegaly with tortuous and/or ectatic aorta. There are chronic appearing increased interstitial markings. There is some minimal right basilar atelectasis or infiltrate. There is no pneumothorax or pleural fluid. ET tube tip overlies the mid trachea. Right subclavian central catheter tip overlies the SVC right atrial junction. IMPRESSION: Cardiomegaly and chronic changes. Mild right basilar atelectatic change or infiltrate. ET tube and central line, as above. Tortuous and/or ectatic aorta. Dictated by: Dictated on workstation # [id number]
[2019-09-28] MEDS ORDERED: VANCOMYCIN INJECTION 1,000 MG in NS (IVPB) 250 ML IV ONE (21:45)
[2019-09-28] MEDS ORDERED: PROPOFOL DRIP (ICU) 100 ML IV SCH (21:45)
[2019-09-28] MEDS ORDERED: FUROSEMIDE 40 MG/4 ML INJ (LASIX) IVP ONE (22:00)
--- NOTE | 2019-09-28 22:20 | NUR ---
[facility] was called and had ETA of 58 minutes so [facility] was called at this time. They are checking for weather.
--- NOTE | 2019-09-28 22:22 | NUR ---
[employer] [facility] accepted flight at this time. ETA 30 min
--- NOTE | 2019-09-28 22:34 | NUR ---
Ricky with [facility] called and helicopter has launched and ETA 20 minutes
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
--- NOTE | 2019-09-28 23:08 | NUR ---
[facility] called and stated the crew is headed back from [place] and when they get back they have to decon. After that they will check weather, then will get back with me. Pt information given.
--- NOTE | 2019-09-29 00:03 | NUR ---
[facility] called at this time and notified that fixed wing is coming in about an hour. [facility] was notifed at this time that they need to be at the airport to [place] pick[place] the crew and take the crew and patient back. ETA about 1 hour.
--- NOTE | 2019-09-29 00:09 | NUR ---
REPORT TO TRANSPORT TEAM
[2019-09-29] MEDS ORDERED: FUROSEMIDE 40 MG/4 ML INJ (LASIX) IVP ONE (01:00)
--- NOTE | 2019-09-29 01:25 | NUR ---
EMS ARRIVED WITH [facility] FOR TRANSPORT.
[2019-09-29 01:48] VITALS: BP 86/61
--- NOTE | 2019-09-29 01:48 | NUR ---
PROPOFOL INFUSING UPON [facility]ASPORT.
--- NOTE | 2019-09-29 01:48 | NUR ---
EMS DEPARTED WITH [facility] AND PT.
--- NOTE | 2019-09-29 01:52 | NUR ---
ATTEMPT TO CALL PT FAMILY WHO IS PT POA TO INFORM THAT PT HAS DEPARTED ED ENROUTE TO [facility].
--- NOTE | 2019-09-29 02:20 | NUR ---
1940 CEFEPINE STARTED/2010 20ML FINISHED INFUSING 1950 1000ML NORMAL SALINE STARTED/2130 FINISHED INFUSING 2001 succinylcholine 2001 20 MG ETOMIDATE 2007 ETT PLACED BY PROVIDED. 7.0 AND 23 AT THE LIPS 2020 LEVOFED STARTED AT 0.5 MCG/KG/MIN PER PROVIDER/TITRATED TO 0.4MCG/KG/MIN PER PROVIDER 2026 5MG VERSED WASTED 2026 4MG VERSED 2116 4MG VERSED 2121 1000ML NORMAL SALINE STARTED/2228 FINISHED INFUSING
--- NOTE | 2019-09-29 05:59 | ED General ---
General Chief Complaint: General Problems/Pain Stated Complaint: GENERALIZED WEAKNESS Nursing Triage Note: Patient presents to the ED via EMS with c/o of generalized weakness, fever, cough, and shortness of breath. EMS reports that the the patient oxygen saturation was 71% on room air. Family reports that the patient wasn't eating and was becoming increasingly weak. Nursing Sepsis Screen: Possible Severe Sepsis Risk Source of Information: Patient Exam Limitations: Physical Impairments, Other (clinical condition) History of Present Illness Date Seen by Provider: Sep 29, 2019 Time Seen by Provider: 19:20 Initial Comments Patient is a 74-year-old female seen in the emergency department yesterday for generalized weakness and UTI who presents in acute respiratory distress with respiratory failure and hypotension. Patient arrives by EMS on a nonrebreather mask with an O2 saturation of 71%. History is limited due the patient's acute presentation. Patient noted be hypotensive with systolic blood pressure in the 70s and diastolic blood pressure in the 40s. Patient is alert and able to confirm that she is a full code and wishes all resuscitative measures to be pursued. Patient's dad medical power of litigation attorney contacted who also confirms patient's desire to have all aggressive life support measures pursued. Timing/Duration: Getting Worse (unknown), Other Severity: Severe Associated Systoms: Shortness of Air, Weakness Allergies and Home Medications Allergies Coded Allergies: No Known Drug Allergies (Unverified , 03/11/19) Home Medications Cephalexin 500 Mg Capsule, 500 MG PO BID Prescribed by: SHARLENE FISHER on 09/27/19 1056 Hydrocodone/Acetaminophen 1 Each Tablet, 1 EACH PO Q6H PRN for PAIN-SEVERE (8- 10) Prescribed by: SHARLENE FISHER on 09/27/19 1056 Ibuprofen 400 Mg Tablet, 400 MG PO Q6H PRN for PAIN Prescribed by: SHARLENE FISHER on 09/27/19 1056 Patient Home Medication List Home Medication List Reviewed: Yes Review of Systems Review of Systems Constitutional: see HPI EENTM: see HPI Respiratory: see HPI Cardiovascular: see HPI Gastrointestinal: see HPI Genitourinary: see HPI : No Musculoskeletal: see HPI Skin: see HPI Psychiatric/Neurological: See HPI Hematologic/Lymphatic: See HPI Immunological/Allergic: see HPI Past Lhaamka-Fgyghd-Ickuvh Hx Past Med/Social Hx: Reviewed Nursing Past Med/Soc Hx Patient Social History Alcohol Use: Denies Use Number of Drinks Today: FF Alcohol Beverage of Choice: Vodka Recreational Drug Use: No Smoking Status: Current Everyday Smoker Type Used: Cigarettes 2nd Hand Smoke Exposure: No Recent Foreign Travel: No Contact w/Someone Who Travel: No Recent Infectious Disease Expo: No Recent Hopitalizations: No Physical Abuse: No Sexual Abuse: No Mistreated: No Fear: No Seasonal Allergies Seasonal Allergies: No Past Medical History Surgeries: Yes (AKA, Hip Replacement, ORIF) Abdominal, Orthopedic, Rectal Respiratory: Yes COPD Cardiac: Yes (AAA, Artierial Occlusion Lower Extremity, Thoracic aortic aneurysm) Aneurysm Neurological: Yes (alcohol withdrawal syndrome) Dementia Genitourinary: Yes (UTI's) Renal Failure Gastrointestinal: Yes Irritable Bowel Musculoskeletal: Yes Arthritis, Back Injury Endocrine: No HEENT: Yes Glaucoma Loss of Vision: Denies Hearing Impairment: Hard of Hearing Cancer: No Psychosocial: No Anxiety Integumentary: No Blood Disorders: No Adverse Reaction/Blood Tranf: No Family Medical History CAD Over 55 Years Old, Diabetes, Stroke Physical Exam Vital Signs Vital Signs - First Documented 09/28/19 19:30 Temp 36.7 Pulse 131 Resp 23 B/P (MAP) 71/55 (60) Pulse Ox 94 O2 Delivery Room Air Capillary Refill : Less Than 3 Seconds Height, Weight, BMI Height: '" Weight: lbs. oz. kg; 23.00 BMI Method: General Appearance: Severe Distress, Thin Eyes: Bilateral Eye Normal Inspection, Bilateral Eye PERRL HEENT: PERRL/EOMI, Pharynx Normal, Moist Mucous Membranes Neck: Supple, Other (restricted range of motion to the right) Respiratory: Decreased Breath Sounds, Rales, Respiratory Distress Cardiovascular: Tachycardia Gastrointestinal: Non Tender, Soft, Other (large anterior ventral hernia) Back: Normal Inspection Extremity: Pedal Edema Neurologic/Psychiatric: Alert Skin: Other (dusky) Focused Exam Sepsis Stage: Sepsis Possible Source: Genitouriary Lactate Level 09/28/19 19:30: Lactic Acid Level 1.44 Time of Focused Exam: 21:50 Respiratory: Crackles, Decreased Breath Sounds Cardiovascular: Tachycardia Capillary Refill: Less Than 3 Seconds Peripheral Pulses: 4+ Carotid (R), 4+ Carotid (L) Skin: pallor Within 3hrs of presentation: Admin ABX, Blood cultures prior to ABX's, Focus exam Procedures/Interventions Lumen: triple Central Line Procedure: betadine prep, sterile drapes applied Position: internal jugular (L), subclavian (R) Post Position: sutured, good blood return, position confirmed w/ CXR Reason for Intubation: Acuterespiratory failure Medications: Etomidate, Succinylcholine Positive End Tide CO2: Yes Breath Sounds after Intubation: bilateral-equal Intubation Complications: no complications Post Intubation Xray: Yes Progress/Results/Core Measures Suspected Sepsis Recent Fever Within 48 Hours: Yes Infection Criteria Present: Documented Infection New/Unexplained Altered Menta: Yes Sepsis Screen: Possible Severe Sepsis Risk SIRS Temperature: Pulse: 111 Respiratory Rate: 20 Laboratory Tests 09/28/19 19:34: White Blood Count 12.9H Blood Pressure 86 /61 Mean: 126 09/28/19 19:30: Lactic Acid Level 1.44 Laboratory Tests 09/28/19 19:34: Creatinine 1.65H, Platelet Count 180, Total Bilirubin 0.5 Results/Orders Lab Results Laboratory Tests Test 09/28/19 19:30 09/28/19 19:34 Range/Units Lactic Acid Level 1.44 0.50-2.00 MMOL/L White Blood Count 12.9 H 4.3-11.0 10^3/uL Red Blood Count 4.68 4.35-5.85 10^6/uL Hemoglobin 12.7 11.5-16.0 G/DL Hematocrit 39 35-52 % Mean Corpuscular Volume 84 80-99 FL Mean Corpuscular Hemoglobin 27 25-34 PG Mean Corpuscular Hemoglobin Concent 32 32-36 G/DL Red Cell Distribution Width 16.8 H 10.0-14.5 % Platelet Count 180 130-400 10^3/uL Mean Platelet Volume 11.4 H 7.4-10.4 FL Neutrophils (%) (Auto) 75 42-75 % Lymphocytes (%) (Auto) 15 12-44 % Monocytes (%) (Auto) 9 0-12 % Eosinophils (%) (Auto) 0 0-10 % Basophils (%) (Auto) 0 0-10 % Neutrophils # (Auto) 9.6 H 1.8-7.8 X 10^3 Lymphocytes # (Auto) 2.0 1.0-4.0 X 10^3 Monocytes # (Auto) 1.2 H 0.0-1.0 X 10^3 Eosinophils # (Auto) 0.0 0.0-0.3 10^3/uL Basophils # (Auto) 0.0 0.0-0.1 10^3/uL Sodium Level 140 135-145 MMOL/L Potassium Level 4.9 3.6-5.0 MMOL/L Chloride Level 104 98-107 MMOL/L Carbon Dioxide Level 24 21-32 MMOL/L Anion Gap 12 5-14 MMOL/L Blood Urea Nitrogen 57 H 7-18 MG/DL Creatinine 1.65 H 0.60-1.30 MG/DL Estimat Glomerular Filtration Rate 30 BUN/Creatinine Ratio 35 Glucose Level 160 H 70-105 MG/DL Calcium Level 9.6 8.5-10.1 MG/DL Corrected Calcium 9.9 8.5-10.1 MG/DL Total Bilirubin 0.5 0.1-1.0 MG/DL Aspartate Amino Transf (AST/SGOT) 100 H 5-34 U/L Alanine Aminotransferase (ALT/SGPT) 63 H 0-55 U/L Alkaline Phosphatase 94 40-136 U/L Troponin I 0.43 *H <0.30 NG/ML C-Reactive Protein 31.66 H <0.50 MG/DL Pro-B-Type Natriuretic Peptide 68445.0 H <75.0 PG/ML Total Protein 6.7 6.4-8.2 GM/DL Albumin 3.6 3.2-4.5 GM/DL My Orders Orders - ALEXUS BENDER DO Cbc With Automated Diff (09/28/19 19:39) Comprehensive Metabolic Panel (09/28/19 19:39) Lactic Acid Analyzer (09/28/19 19:39) Crp Fs (09/28/19 19:39) Catheter(Urinary) Insert & Ass 03,15 (09/28/19 19:39) Ua Culture If Indicated (09/28/19 19:39) Probnp Fs (09/28/19 19:39) Troponin I Fs (09/28/19 19:39) Arterial Blood Gas (09/28/19 19:39) Blood Culture (09/28/19 19:39) Chest 1 View Ap/Pa Only (09/28/19 19:39) Ns Iv 1000 Ml (Sodium Chloride 0.9%) (09/28/19 19:45) Cefepime Injection (Maxipime Injection) (09/28/19 19:45) Norepinephrine 4 Mg/250 Ml (Norepinephri (09/28/19 20:00) Blood Culture (09/28/19 19:35) Etomidate Injection (Amidate Injection) (09/28/19 20:15) Succinylcholine Injection (Succinylcholi (09/28/19 20:15) Midazolam Injection (Versed Injection) (09/28/19 20:15) Ondansetron Injection (Zofran Injectio (09/28/19 21:30) Vancomycin Injection (Vancomycin Injecti (09/28/19 21:45) Propofol Drip (Icu) (Diprivan Drip (Icu) (09/28/19 21:45) Furosemide Injection (Lasix Injection) (09/28/19 22:00) Furosemide Injection (Lasix Injection) (09/29/19 01:00) Medications Given in ED Current Medications Medications Dose Ordered Sig/Katrina Route Start Time Stop Time Status Last Admin Dose Admin Furosemide 40 mg ONCE ONCE IVP 09/28/19 22:00 09/28/19 22:01 DC 09/28/19 22:28 40 MG Furosemide 40 mg ONCE ONCE IVP 09/29/19 01:00 09/29/19 01:01 DC 09/29/19 01:01 40 MG Ondansetron HCl 4 mg ONCE ONCE IVP 09/28/19 21:30 09/28/19 21:31 DC 09/28/19 22:28 4 MG Vancomycin HCl 1000 mg/Sodium Chloride 250 ml @ 250 mls/hr ONCE ONCE IV 09/28/19 21:45 09/28/19 22:44 DC 09/28/19 22:28 250 MLS/HR Vital Signs/I&O 09/28/19 09/28/19 09/29/19 19:30 22:30 01:48 Temp 36.7 Pulse 131 113 111 Resp 23 20 B/P (MAP) 71/55 (60) 164/108 86/61 Pulse Ox 94 100 O2 Delivery Room Air Mechanical Ventilator Capillary Refill : Less Than 3 Seconds Blood Pressure Mean: 126 Departure Communication (Admissions) Chest x-ray: Cardiomegaly with pulmonary vascular congestion Exam consistent with cardiogenic shock with flash pulmonary edema and possible sepsis secondary to UTI. IV fluids, antibiotics and Lasix given. Patient in respiratory distress with respiratory failure. Patient intubated with improved ventilation and oxygenation. Central line placed for fluid and antibiotic management. Blood pressure significantly improved when change from to right arm. Vital signs stabilized on ventilator. Dr. Rowell accepts transfer to [facility]. Critical care time: 65 minutes Impression Primary Impression: Acute respiratory failure with hypoxia Additional Impressions: Cardiogenic shock Hypotension Acute kidney injury Sepsis Urinary tract infection Disposition: 02 XFER SHT-TRM HOSP Condition: Stable Transfer Transfer Reason: Exceeds level of care Method of Transfer: Air Departure-Patient Inst. Decision time for Depature: 01:50 Referrals: LIUDMILA GANDARA MD (PCP) Primary Care Physician ALEXUS BENDER DO Sep 29, 2019 05:59
== END 2019-09-29 01:49 | disposition short-term general hospital (02) ==
LOC: EDUNIT# 19:18 → ER FS 19:20
DX: A41.9 Sepsis, unspecified organism (principal); N39.0 Urinary tract infection, site not specified; R65.20 Severe sepsis without septic shock; J96.01 Acute respiratory failure with hypoxia; N17.9 Acute kidney failure, unspecified; R57.0 Cardiogenic shock; I95.9 Hypotension, unspecified; F17.210 Nicotine dependence, cigarettes, uncomplicated; Z82.49 Family history of ischemic heart disease and other diseases of the circulatory system
CPT/HCPCS: 51702; 71045; 80053; 83605; 83880; 84484; 85025; 86141; 87040; 96365; 96375; 96376; 99291

== ENCOUNTER 2020-02-26 04:47 | Emergency (ER) | payer MEDICARE, OTHER ==
[~2020-02-26 04:47] MED LIST changes: +ACHD5005 PO; -HYDR-3812 PO
[2020-02-26 05:15] LABS: WHITE BLOOD COUNT 6.7 10^3/uL (4.3-11.0)
[2020-02-26] MEDS ORDERED: LORazepam INJ 2 MG/ML (ATIVAN) VIAL IVP ONE (05:15)
[2020-02-26] MEDS ORDERED: ASPIRIN 81 MG CHEW (CHILDREN'S ASA) PO ONE (05:15)
[2020-02-26] MEDS ORDERED: NS IV 1000 ML 1,000 ML IV SCH (05:15)
[2020-02-26] MEDS ORDERED: ONDANSETRON 4 MG/2 ML (SDV) Z0FRAN IVP ONE (05:15)
[2020-02-26] MEDS ORDERED: methylPREDNISolone 125 MG (Solu-MEDROL) VIAL IM ONE (05:15)
[2020-02-26 05:16] LABS: BASOPHILS # (AUTO) 0.1 10^3/uL (0.0-0.1); BASOPHILS % (AUTO) 1 % (0-10); EOSINOPHILS # (AUTO) 0.3 10^3/uL (0.0-0.3); EOSINOPHILS % (AUTO) 5 % (0-10); HEMATOCRIT 44 % (35-52); LYMPHOCYTES # (AUTO) 1.6 X 10^3 (1.0-4.0); LYMPHOCYTES % (AUTO) 24 % (12-44); MEAN CORPUSCULAR HEMOGLOBIN 26 PG (25-34); MEAN CORPUSCULAR HGB CONC 32 G/DL (32-36); MEAN CORPUSCULAR VOLUME 80 FL (80-99); MEAN PLATELET VOLUME 10.6 FL (7.4-10.4); MONOCYTES # (AUTO) 0.6 X 10^3 (0.0-1.0); MONOCYTES % (AUTO) 9 % (0-12); NEUTROPHILS # (AUTO) 4.1 X 10^3 (1.8-7.8); NEUTROPHILS % (AUTO) 62 % (42-75); PLATELET COUNT 217 10^3/uL (130-400)
[2020-02-26 05:17] LABS: INR 0.9 (0.8-1.4); PROTHROMBIN TIME PATIENT 12.8 SEC (12.2-14.7)
--- NOTE | 2020-02-26 05:19 | ED General ---
General Chief Complaint: Respiratory Problems Stated Complaint: SOB Nursing Triage Note: Pt brought in by ems with complaints of sob, nausea, and generalized weakness Nursing Sepsis Screen: No Definite Risk (SHARLENE FISHER DO) History of Present Illness Date Seen by Provider: Feb 26, 2020 Time Seen by Provider: 05:14 Initial Comments Patient presenting to emergency department for evaluation of multiple nonspecific complaints of what she was at least 10 complaints including cough shortness of breath nausea diarrhea generalized weakness shakiness and anxiety. I asked her if there is something specific that she called 911 for this morning and she could not list anything specific rather she said just everything. She said she has been feeling poorly for the past 4-5 days with all of the above symptoms. She says she is having digestive issues and is feeling nauseated and is not eating or drinking as much as she thinks she needs to and has been having loose stools as well but no bloody stools. She says she has been dehydrated and had a UTI with these symptoms before. Patient says that the cough is nonproductive but she has COPD does not wear oxygen at home and continues to smoke cigarettes. She says she feels generally weak and shaky. She has pressured speech and is obviously anxious and she admits that she thinks anxious this morning. She had some wheezing for EMS and they gave her a DuoNeb treatment and she thinks that her shortness of breath is better. She is satting 93-95% on room air. She is in no obvious distress with slight tachycardia at 110 noted. (SHARLENE FISHER DO) Allergies and Home Medications Allergies Coded Allergies: No Known Drug Allergies (Unverified , 03/11/19) Home Medications Cephalexin 500 Mg Capsule, 500 MG PO BID Prescribed by: SHARLENE FISHER on 09/27/19 1056 Hydrocodone/Acetaminophen 1 Each Tablet, 1 EACH PO Q6H PRN for PAIN-SEVERE (8- 10) Prescribed by: SHARLENE FISHER on 09/27/19 1056 Ibuprofen 400 Mg Tablet, 400 MG PO Q6H PRN for PAIN Prescribed by: SHARLENE FISHER on 09/27/19 1056 Ondansetron 4 Mg Tab.rapdis, 4 MG PO Q6H PRN for NAUSEA/VOMITING-1ST LINE Prescribed by: SHARLENE FISHER on 02/26/20 0650 Prednisone 20 Mg Tab, 40 MG PO DAILY Prescribed by: SHARLENE FISHER on 02/26/20 0641 Patient Home Medication List Home Medication List Reviewed: Yes (SHARLENE FISHER DO) Review of Systems Review of Systems Constitutional: dizziness, malaise, weakness EENTM: no symptoms reported Respiratory: short of breath Cardiovascular: no symptoms reported Gastrointestinal: diarrhea, nausea Genitourinary: no symptoms reported Musculoskeletal: no symptoms reported Skin: no symptoms reported Psychiatric/Neurological: Anxiety (SHARLENE FISHER DO) All Other Systems Reviewed Negative Unless Noted: Yes (SHARLENE FISHER DO) Past Fwujehn-Ibpczl-Cqcovx Hx Patient Social History Alcohol Use: Denies Use Number of Drinks Today: FF Alcohol Beverage of Choice: Vodka Recreational Drug Use: No Type Used: Cigarettes 2nd Hand Smoke Exposure: No Recent Foreign Travel: No Contact w/Someone Who Travel: No Recent Infectious Disease Expo: No Recent Hopitalizations: No Physical Abuse: No Sexual Abuse: No (SHARLENE FISHER DO) Seasonal Allergies Seasonal Allergies: No (SHARLENE FISHER DO) Past Medical History Surgeries: Yes (AKA, Hip Replacement, ORIF) Abdominal, Orthopedic, Rectal Respiratory: Yes COPD Cardiac: Yes (AAA, Artierial Occlusion Lower Extremity, Thoracic aortic aneu rysm) Aneurysm Neurological: Yes (alcohol withdrawal syndrome) Dementia Genitourinary: Yes (UTI's) Renal Failure Gastrointestinal: Yes Irritable Bowel Musculoskeletal: Yes Arthritis, Back Injury Endocrine: No HEENT: Yes Glaucoma Loss of Vision: Denies Hearing Impairment: Hard of Hearing Cancer: No Psychosocial: No Anxiety Integumentary: No Blood Disorders: No Adverse Reaction/Blood Tranf: No (SHARLENE IFSHER DO) Family Medical History CAD Over 55 Years Old, Diabetes, Stroke (SHARLENE FISHER DO) Physical Exam Vital Signs Vital Signs - First Documented 02/26/20 05:03 Temp 36.5 Pulse 118 Resp 22 B/P (MAP) 148/79 (102) Pulse Ox 95 O2 Delivery Room Air (ROSEMARIE GALVEZ) Vital Signs Capillary Refill : Less Than 3 Seconds (SHARLENE FISHER DO) Height, Weight, BMI Height: '" Weight: lbs. oz. kg; 23.00 BMI Method: General Appearance: No Apparent Distress, WD/WN HEENT: PERRL/EOMI Neck: Supple Respiratory: Lungs Clear, No Respiratory Distress Cardiovascular: Tachycardia Gastrointestinal: Non Tender, Soft Back: Normal Inspection Extremity: Normal Capillary Refill, No Pedal Edema Neurologic/Psychiatric: Alert, Oriented x3 Skin: Warm/Dry (SHARLENE FISHER DO) Progress/Results/Core Measures Suspected Sepsis Recent Fever Within 48 Hours: No Infection Criteria Present: None New/Unexplained Altered Menta: No Sepsis Screen: No Definite Risk SIRS Temperature: Pulse: 118 Respiratory Rate: 22 Laboratory Tests 02/26/20 04:55: White Blood Count 6.7 Blood Pressure 148 /79 Mean: 102 Laboratory Tests 02/26/20 04:55: Creatinine 0.57L, INR Comment 0.9, Platelet Count 217, Total Bilirubin 0.4 (SHARLENE FISHER DO) Results/Orders Lab Results Laboratory Tests Test 02/26/20 04:55 02/26/20 05:50 Range/Units White Blood Count 6.7 4.3-11.0 10^3/uL Red Blood Count 5.43 4.35-5.85 10^6/uL Hemoglobin 14.0 11.5-16.0 G/DL Hematocrit 44 35-52 % Mean Corpuscular Volume 80 80-99 FL Mean Corpuscular Hemoglobin 26 25-34 PG Mean Corpuscular Hemoglobin Concent 32 32-36 G/DL Red Cell Distribution Width 18.7 H 10.0-14.5 % Platelet Count 217 130-400 10^3/uL Mean Platelet Volume 10.6 H 7.4-10.4 FL Immature Granulocyte % (Auto) 0 % Neutrophils (%) (Auto) 62 42-75 % Lymphocytes (%) (Auto) 24 12-44 % Monocytes (%) (Auto) 9 0-12 % Eosinophils (%) (Auto) 5 0-10 % Basophils (%) (Auto) 1 0-10 % Neutrophils # (Auto) 4.1 1.8-7.8 X 10^3 Lymphocytes # (Auto) 1.6 1.0-4.0 X 10^3 Monocytes # (Auto) 0.6 0.0-1.0 X 10^3 Eosinophils # (Auto) 0.3 0.0-0.3 10^3/uL Basophils # (Auto) 0.1 0.0-0.1 10^3/uL Immature Granulocyte # (Auto) 0.0 0.0-0.1 10^3/uL Prothrombin Time 12.8 12.2-14.7 SEC INR Comment 0.9 0.8-1.4 Activated Partial Thromboplast Time 25 24-35 SEC D-Dimer 2.43 H 0.00-0.49 UG/ML Sodium Level 139 135-145 MMOL/L Potassium Level 3.6 3.6-5.0 MMOL/L Chloride Level 102 98-107 MMOL/L Carbon Dioxide Level 30 21-32 MMOL/L Anion Gap 7 5-14 MMOL/L Blood Urea Nitrogen 7 7-18 MG/DL Creatinine 0.57 L 0.60-1.30 MG/DL Estimat Glomerular Filtration Rate > 60 BUN/Creatinine Ratio 12 Glucose Level 105 70-105 MG/DL Calcium Level 9.7 8.5-10.1 MG/DL Corrected Calcium 9.9 8.5-10.1 MG/DL Magnesium Level 1.8 1.6-2.4 MG/DL Total Bilirubin 0.4 0.1-1.0 MG/DL Aspartate Amino Transf (AST/SGOT) 27 5-34 U/L Alanine Aminotransferase (ALT/SGPT) 17 0-55 U/L Alkaline Phosphatase 122 40-136 U/L Troponin I < 0.30 <0.30 NG/ML Pro-B-Type Natriuretic Peptide 868.5 H <75.0 PG/ML Total Protein 6.9 6.4-8.2 GM/DL Albumin 3.7 3.2-4.5 GM/DL Lipase 30 8-78 U/L Urine Color YELLOW Urine Clarity CLEAR Urine pH 7.0 5-9 Urine Specific [place] 1.010 L 1.016-1.022 Urine Protein NEGATIVE NEGATIVE Urine Glucose (UA) NEGATIVE NEGATIVE Urine Ketones NEGATIVE NEGATIVE Urine Nitrite NEGATIVE NEGATIVE Urine Bilirubin NEGATIVE NEGATIVE Urine Urobilinogen 0.2 < = 1.0 MG/DL Urine Leukocyte Esterase NEGATIVE NEGATIVE Urine RBC (Auto) TRACE-I NEGATIVE Urine RBC 5-10 H /HPF Urine WBC 0-2 /HPF Urine Squamous Epithelial Cells 2-5 /HPF Urine Crystals NONE /LPF Urine Bacteria TRACE /HPF Urine Casts NONE /LPF Urine Mucus NEGATIVE /LPF Urine Culture Indicated NO (ROSEMARIE GALVEZ) Medications Given in ED Current Medications Medications Dose Ordered Sig/Katrina Route Start Time Stop Time Status Last Admin Dose Admin Iohexol 100 ml ONCE ONCE IV 02/26/20 06:00 02/26/20 06:01 DC 02/26/20 06:26 100 ML Lorazepam 1 mg ONCE ONCE IVP 02/26/20 05:15 02/26/20 05:16 DC 02/26/20 05:21 1 MG Ondansetron HCl 4 mg ONCE ONCE IVP 02/26/20 05:15 02/26/20 05:16 DC 02/26/20 05:21 4 MG Sodium Chloride 100 ml ONCE ONCE IV 02/26/20 06:00 02/26/20 06:01 DC 02/26/20 06:26 100 ML (ROSEMARIE GALVEZ) Vital Signs/I&O 02/26/20 05:03 Temp 36.5 Pulse 118 Resp 22 B/P (MAP) 148/79 (102) Pulse Ox 95 O2 Delivery Room Air (ROSEMARIE GALVEZ) Vital Signs/I&O Capillary Refill : Less Than 3 Seconds (SHARLENE FISHER DO) Blood Pressure Mean: 102 Progress Note : Progress Note Patient's with multiple nonspecific symptoms and certainly she does have multiple comorbidities I will need to check labs imaging treat symptoms and reassess. Workup has come back negative except for a slightly elevated BNP and d-dimer so CT angiography is being done in addition to CT head for the head trauma she s ustained one week ago from a fall. I told patient if her scans come back negative that she can likely go home and I will prescribe her prednisone and she needs to use her inhaler every 4 hours for a COPD exacerbation. I told patient to follow with primary care provider within 2-3 days for all of her symptoms and follow-up. I told her she likely needs more help at home given her chronic medical problems and issues she is having and she says she is moving into the [facility] one month and I told her to contact them today to try to get her move and they moved up. No admission criteria met and she is safe to go home so I will discharge her in stable condition told her to follow as above and come back to the ED sooner with worsening pain shortness of breath or other general concerns. Final CT reads pending at this time, will transfer care to Dr. Galvez at shift change at 0700. (SHARLENE FISHER DO) Progress Note #1: Progress Note 0700: Assumed care of the patient at shift change. Reviewed the history and physical exam and agree with the above documented by Dr. Herrera. Patient states she would still prefer to go home and follow-up outpatient with Dr. Gandara. Chest x-ray reviewed. Awaiting radiology over read of CT. Progress Note #2: Time: 07:55 Progress Note We reviewed the results of the imaging and labs with the patient again. We discussed the prednisone and ondansetron. She was very happy to have the nausea medicine. We discussed strategies for constipation and nausea. We encouraged her to keep her follow-up appointments with her [facility] vascular surgery doctors about her aneurysm. We discussed return precautions. We answered all of her questions and she says she is going to call for a ride and is ready to go home. (ROSEMARIE GALVEZ) Diagnostic Imaging Diagonstic Imaging: Xray Plain Films/CT/US/NM/MRI: chest Comments [facility], [place] NAME: LUISITOTomásALEKSANDAR DENTON [facility] REC#: [id number] PT STATUS: REG ER : 1945 PHYSICIAN: SHARLENE FISHER DO ADMIT DATE: 02/26/20/ER FS Draft Date of Exam:02/26/20 CHEST 1 VIEW AP/PA ONLY INDICATION: COUGH, SOA. TECHNIQUE: Single view chest 5:10 AM. CORRELATION STUDY: 09/28/2019 FINDINGS: Distortion of the mediastinum with what appears to be rather prominent, tortuous ectatic thoracic aorta overall appears unchanged. Heart size and vasculature within normal limits. Endotracheal tube and right-sided central line have been removed. Largely chronic change about the lung parenchyma. There does appear to be minimal atelectasis and/or scarring about the left mid to lower lung field. IMPRESSION: 1. Minimal atelectasis and/or scarring left mid lung field. Otherwise chronic changes about the lung parenchyma. No acute abnormality. Dictated on workstation # [id number] Dict: 02/26/20 0551 Trans: 02/26/20 0555 NERI [id number] Interpreted by: ZACHARY TOLBERT DO Electronically signed by: Reviewed: Reviewed by Me Diagonstic Imaging: CT Plain Films/CT/US/NM/MRI: c-spine, head Comments NAME: ALEKSANDAR ROBLES [facility] REC#: [id number] PT STATUS: REG ER : 1945 PHYSICIAN: SHARLENE FISHER DO ADMIT DATE: 02/26/20/ER FS Draft Date of Exam:02/26/20 CT HEAD WO PROCEDURE: CT head without contrast. TECHNIQUE: Multiple contiguous axial images were obtained through the brain without the use of intravenous contrast. Auto Exposure Controls were utilized during the CT exam to meet ALARA standards for radiation dose reduction. INDICATION: Dizziness COMPARISON: None FINDINGS: Age-related cerebral volume loss and chronic microvascular changes are present. There is no midline shift or mass effect. There is no focus of acute ischemia or hemorrhage. There is no extra-axial fluid collection or mass. Ventricular size is normal. The bony calvarium, paranasal sinuses and mastoids are unremarkable. IMPRESSION: No acute intracranial abnormalities. Dictated on workstation # [id number] Dict: 02/26/20 0706 Trans: 02/26/20 0711 NERI [id number] Interpreted by: CAROLA ROY Electronically signed by: Reviewed: Reviewed by Pr Diagonstic Imaging: CT Plain Films/CT/US/NM/MRI: chest, abdomen, pelvis Comments NAME: ALEKSANDAR ROBLES [facility] REC#: [id number] PT STATUS: REG ER : 1945 PHYSICIAN: SHARLENE FISHER DO ADMIT DATE: 02/26/20/ER FS Draft Date of Exam:02/26/20 CT WESLY CHEST/NOANG ABD-PELV W INDICATION: soa, elevated dimer, nausea, diarrhea CTA chest, abdomen and pelvis Thin axial sections through the chest, abdomen and pelvis are obtained following intravenous contrast bolus. Multiplanar MIP images were reconstructed and reviewed. All CT scans use one or more of the following dose optimizing techniques: automated exposure control, MA and/or KvP adjustment based on patient size and exam type or iterative reconstruction. INDICATION: Chest and abdominal pain, shortness of breath. COMPARISON: 09/27/2019. CT CHEST: There is aneurysmal dilatation of essentially the entire thoracic aorta. There is no dissection. There is saccular aneurysm involving the aortic arch measuring up to 38 mm. The visualized great vessels are patent. Pulmonary arteries are normal. There is cardiac enlargement without overt pericardial effusion. Stable dependent atelectasis seen in the right base. There is stable focal nodularity in the anterior left base. There is no acute appearing infiltrate. There is slight central vascular congestion. Osseous structures demonstrate diffuse osteopenia. Multiple chronic thoracic compression fractures are present. IMPRESSION: 1. Cardiac enlargement with central vascular congestion. 2. Thoracic aortic aneurysm essentially unchanged in appearance from the prior exam. 3. No pulmonary embolism was identified. 4. Stable atelectasis in both lung bases with some nodularity in the left anterior base. 5. Chronic thoracic compression fractures. CT abdomen pelvis: Large abdominal aneurysm is again identified with significant mural thrombus. Aneurysm measures slightly larger compared to the prior exam 43 mm just below the renal arteries. Previously this was measured at 39 mm. There is no dissection. The gallbladder is nonvisualized and presumed surgically absent. Large anterior abdominal wall hernia is present containing multiple loops of large and small bowel as well as the gastric antrum. The hernia mouth is paracentral to the right of midline. There is no overt bowel obstruction. There is no solid organ or bowel ischemia. Visualized solid organs are intact. There is mild constipation of the distal colon. There is no free air or free fluid. Urinary bladder is unremarkable. The uterus is intact. There is diffuse osteopenia. New sacral insufficiency fractures are seen involving the S2 sacral segment and portions of the sacral alar. IMPRESSION: 1. Large anterior abdominal wall hernia paracentral to the right of midline containing nondistended loops of colon, small bowel and the antrum of the stomach. 2. No solid organ or bowel ischemia. 3. Enlarging abdominal aortic aneurysm. 4. Constipation of the distal colon without bowel obstruction or inflammatory change. 5. Sacral ala and S2 sacral segment insufficiency fractures. Dictated on workstation # [id number] Dict: 02/26/20 0714 Trans: 02/26/20 0742 BALA [id number] Interpreted by: CAROLA ROY Electronically signed by: Reviewed: Reviewed by Me (ROSEMARIE GALVEZ) Departure Impression Primary Impression: COPD with exacerbation Additional Impressions: Weakness Dizziness Nausea alone Disposition: 01 HOME, SELF-CARE Condition: Stable Departure-Patient Inst. Decision time for Depature: 07:49 (ROSEMARIE GALVEZ) Referrals: LIUDMILA GANDARA MD (PCP/Family) Primary Care Physician Patient Instructions: Abdominal Aortic Aneurysm, Exacerbation of COPD Add. Discharge Instructions: You need to follow-up with Dr. Gandara to discuss options All discharge instructions reviewed with patient and/or family. Voiced understanding. Scripts Ondansetron (Ondansetron Odt) 4 Mg Tab.rapdis 4 MG PO Q6H PRN for NAUSEA/VOMITING-1ST LINE, #14 TAB Prov: SHARLENE FISHER DO 02/26/20 Prednisone (Prednisone) 20 Mg Tab 40 MG PO DAILY for 4 Days, #8 TAB 0 Refills Prov: SHARLENE FISHER DO 02/26/20 SHARLENE FISHER DO Feb 26, 2020 05:19 ROSEMARIE GALVEZ Feb 26, 2020 07:08
[2020-02-26 05:25] LABS: SODIUM 139 MMOL/L (135-145)
[2020-02-26 05:26] LABS: ALANINE AMINOTRANSFERASE 17 U/L (0-55); ALBUMIN 3.7 GM/DL (3.2-4.5); ALKALINE PHOSPHATASE 122 U/L (40-136); BILIRUBIN,TOTAL 0.4 MG/DL (0.1-1.0); BUN/CREATININE RATIO 12; CALCIUM 9.7 MG/DL (8.5-10.1); CARBON DIOXIDE 30 MMOL/L (21-32); CHLORIDE 102 MMOL/L (98-107); CREATININE SERUM 0.57 MG/DL (0.60-1.30); GFR ESTIMATED > 60; GLUCOSE 105 MG/DL (70-105); LIPASE 30 U/L (8-78); MAGNESIUM 1.8 MG/DL (1.6-2.4); POTASSIUM 3.6 MMOL/L (3.6-5.0); TOTAL PROTEIN 6.9 GM/DL (6.4-8.2)
[2020-02-26 05:39] LABS: FIBRIN DEGRADATION PRODUCTS 2.43 UG/ML (0.00-0.49)
--- NOTE | 2020-02-26 05:55 | Diagnostic Imaging Report ---
INDICATION: COUGH, SOA. TECHNIQUE: Single view chest 5:10 AM. CORRELATION STUDY: 09/28/2019 FINDINGS: Distortion of the mediastinum with what appears to be rather prominent, tortuous ectatic thoracic aorta overall appears unchanged. Heart size and vasculature within normal limits. Endotracheal tube and right-sided central line have been removed. Largely chronic change about the lung parenchyma. There does appear to be minimal atelectasis and/or scarring about the left mid to lower lung field. IMPRESSION: 1. Minimal atelectasis and/or scarring left mid lung field. Otherwise chronic changes about the lung parenchyma. No acute abnormality. Dictated by: Dictated on workstation # [id number]
[2020-02-26 05:58] LABS: BACTERIA,URINE TRACE /HPF; BILIRUBIN,URINE NEGATIVE (NEGATIVE); CLARITY,URINE CLEAR; COLOR,URINE YELLOW; GLUCOSE, URINE (UA) NEGATIVE (NEGATIVE); KETONES,URINE NEGATIVE (NEGATIVE); LEUKOCYTE ESTERASE ,URINE NEGATIVE (NEGATIVE); NITRITE,URINE NEGATIVE (NEGATIVE); PROTEIN,URINE NEGATIVE (NEGATIVE); WBC,URINE 0-2 /HPF
[2020-02-26] MEDS ORDERED: HOLD METFORMIN - RECEIVED CONTRAST 20 ML VIAL IV SCH (06:00)
[2020-02-26] MEDS ORDERED: CATHETER FLUSH 10 ML SYR IV PRN (06:00)
[2020-02-26] MEDS ORDERED: NS 100 ML (IVPB) BAG IV ONE (06:00)
[2020-02-26] MEDS ORDERED: IOHEXOL 350 MG/ML 100 ML (OMNIPAQUE 350) VIAL IV ONE (06:00)
[2020-02-26] MEDS ORDERED: ONDA4TAB11 PO (06:50)
[2020-02-26] MEDS ORDERED: PRD20T PO (06:50)
--- NOTE | 2020-02-26 07:11 | Diagnostic Imaging Report ---
PROCEDURE: CT head without contrast. TECHNIQUE: Multiple contiguous axial images were obtained through the brain without the use of intravenous contrast. Auto Exposure Controls were utilized during the CT exam to meet ALARA standards for radiation dose reduction. INDICATION: Dizziness COMPARISON: None FINDINGS: Age-related cerebral volume loss and chronic microvascular changes are present. There is no midline shift or mass effect. There is no focus of acute ischemia or hemorrhage. There is no extra-axial fluid collection or mass. Ventricular size is normal. The bony calvarium, paranasal sinuses and mastoids are unremarkable. IMPRESSION: No acute intracranial abnormalities. Dictated by: Dictated on workstation # [id number]
--- NOTE | 2020-02-26 07:42 | Diagnostic Imaging Report ---
INDICATION: soa, elevated dimer, nausea, diarrhea CTA chest, abdomen and pelvis Thin axial sections through the chest, abdomen and pelvis are obtained following intravenous contrast bolus. Multiplanar MIP images were reconstructed and reviewed. All CT scans use one or more of the following dose optimizing techniques: automated exposure control, MA and/or KvP adjustment based on patient size and exam type or iterative reconstruction. INDICATION: Chest and abdominal pain, shortness of breath. COMPARISON: 09/27/2019. CT CHEST: There is aneurysmal dilatation of essentially the entire thoracic aorta. There is no dissection. There is saccular aneurysm involving the aortic arch measuring up to 38 mm. The visualized great vessels are patent. Pulmonary arteries are normal. There is cardiac enlargement without overt pericardial effusion. Stable dependent atelectasis seen in the right base. There is stable focal nodularity in the anterior left base. There is no acute appearing infiltrate. There is slight central vascular congestion. Osseous structures demonstrate diffuse osteopenia. Multiple chronic thoracic compression fractures are present. IMPRESSION: 1. Cardiac enlargement with central vascular congestion. 2. Thoracic aortic aneurysm essentially unchanged in appearance from the prior exam. 3. No pulmonary embolism was identified. 4. Stable atelectasis in both lung bases with some nodularity in the left anterior base. 5. Chronic thoracic compression fractures. CT abdomen pelvis: Large abdominal aneurysm is again identified with significant mural thrombus. Aneurysm measures slightly larger compared to the prior exam 43 mm just below the renal arteries. Previously this was measured at 39 mm. There is no dissection. The gallbladder is nonvisualized and presumed surgically absent. Large anterior abdominal wall hernia is present containing multiple loops of large and small bowel as well as the gastric antrum. The hernia mouth is paracentral to the right of midline. There is no overt bowel obstruction. There is no solid organ or bowel ischemia. Visualized solid organs are intact. There is mild constipation of the distal colon. There is no free air or free fluid. Urinary bladder is unremarkable. The uterus is intact. There is diffuse osteopenia. New sacral insufficiency fractures are seen involving the S2 sacral segment and portions of the sacral alar. IMPRESSION: 1. Large anterior abdominal wall hernia paracentral to the right of midline containing nondistended loops of colon, small bowel and the antrum of the stomach. 2. No solid organ or bowel ischemia. 3. Enlarging abdominal aortic aneurysm. 4. Constipation of the distal colon without bowel obstruction or inflammatory change. 5. Sacral ala and S2 sacral segment insufficiency fractures. Dictated by: Dictated on workstation # [id number]
[2020-02-26 08:00] VITALS: BP 115/68
== END 2020-02-26 08:03 | disposition home or self-care (01) ==
LOC: EDUNIT# 04:47 → ER FS 04:52
DX: J44.1 Chronic obstructive pulmonary disease with (acute) exacerbation (principal); R53.1 Weakness; R42 Dizziness and giddiness; R11.0 Nausea; F41.9 Anxiety disorder, unspecified; Z82.49 Family history of ischemic heart disease and other diseases of the circulatory system; Z83.3 Family history of diabetes mellitus; Z79.52 Long term (current) use of systemic steroids
CPT/HCPCS: 36415; 70450; 71045; 71275; 74177; 80053; 81000; 83690; 83735; 83880; 84484; 85025; 85379; 85610; 85730; 93005

== ENCOUNTER → 2020-06-14 | Outpatient (CLI) | payer MEDICARE, OTHER ==
[~2020-06-14] MED LIST changes: +ONDA4TAB11 PO; +PRD20T PO
[2020-06-14 21:33] LABS: BACTERIA,URINE TRACE /HPF; BILIRUBIN,URINE NEGATIVE (NEGATIVE); CALCIUM OXALATE CRYSTALS,UR LARGE /LPF; CLARITY,URINE CLEAR; COLOR,URINE YELLOW; GLUCOSE, URINE (UA) NEGATIVE (NEGATIVE); KETONES,URINE NEGATIVE (NEGATIVE); LEUKOCYTE ESTERASE ,URINE 1+ (NEGATIVE); NITRITE,URINE NEGATIVE (NEGATIVE); PH,URINE 5.5 (5-9); PROTEIN,URINE NEGATIVE (NEGATIVE)
== END ==
LOC: PVFS 21:06
PROVIDERS: ATTEND Family Medicine
DX: R35.0 Frequency of micturition (principal)
CPT/HCPCS: 81000; 87088

== ENCOUNTER → 2020-06-22 | Outpatient (CLI) | payer MEDICARE, OTHER ==
[2020-06-22 14:37] LABS: CLARITY,URINE SLIGHTLY CLOUDY; COLOR,URINE YELLOW
[2020-06-22 14:38] LABS: BACTERIA,URINE TRACE /HPF; BILIRUBIN,URINE NEGATIVE (NEGATIVE); CALCIUM OXALATE CRYSTALS,UR LARGE /LPF; GLUCOSE, URINE (UA) NEGATIVE (NEGATIVE); KETONES,URINE NEGATIVE (NEGATIVE); LEUKOCYTE ESTERASE ,URINE NEGATIVE (NEGATIVE); NITRITE,URINE NEGATIVE (NEGATIVE); PROTEIN,URINE NEGATIVE (NEGATIVE); SQUAMOUS EPITHELIAL CELL,UR RARE /HPF
== END ==
LOC: LAB FS 14:08
PROVIDERS: ATTEND Family Medicine
DX: R35.0 Frequency of micturition (principal); R10.9 Unspecified abdominal pain
CPT/HCPCS: 81000

== ENCOUNTER → 2020-09-12 | Outpatient (CLI) | payer MEDICARE, OTHER ==
[2020-09-12 14:24] LABS: BILIRUBIN,URINE NEGATIVE (NEGATIVE); CLARITY,URINE CLEAR; COLOR,URINE YELLOW; GLUCOSE, URINE (UA) NEGATIVE (NEGATIVE); KETONES,URINE TRACE (NEGATIVE); LEUKOCYTE ESTERASE ,URINE NEGATIVE (NEGATIVE); NITRITE,URINE NEGATIVE (NEGATIVE); PROTEIN,URINE NEGATIVE (NEGATIVE)
[2020-09-12 14:25] LABS: BACTERIA,URINE NEGATIVE /HPF; SQUAMOUS EPITHELIAL CELL,UR 0-2 /HPF
== END ==
LOC: LAB FS 13:53
PROVIDERS: ATTEND Family Medicine
DX: R33.9 Retention of urine, unspecified (principal)
CPT/HCPCS: 81000

== ENCOUNTER 2022-12-14 08:40 | Emergency (ER) | payer MEDICARE, OTHER ==
[~2022-12-14] VITALS: Ht 142 cm; Wt 58.0 kg
[~2022-12-14 08:40] MED LIST changes: +DOXY100T2 PO; +IPRA3AMP31 IH; +METH4TAB10 PO
[2022-12-14 08:55] LABS: BASOPHILS # (AUTO) 0.1 10^3/uL (0.0-0.1); BASOPHILS % (AUTO) 1 % (0-10); EOSINOPHILS # (AUTO) 0.2 10^3/uL (0.0-0.3); EOSINOPHILS % (AUTO) 4 % (0-10); HEMATOCRIT 39 % (35-52); HEMOGLOBIN 11.9 g/dL (11.5-16.0); LYMPHOCYTES # (AUTO) 0.8 10^3/uL (1.0-4.0); LYMPHOCYTES % (AUTO) 16 % (12-44); MEAN CORPUSCULAR HEMOGLOBIN 25 pg (25-34); MEAN CORPUSCULAR HGB CONC 30 g/dL (32-36); MEAN CORPUSCULAR VOLUME 82 fL (80-99); MEAN PLATELET VOLUME 10.5 fL (9.0-12.2); MONOCYTES # (AUTO) 0.5 10^3/uL (0.0-1.0); MONOCYTES % (AUTO) 9 % (0-12); NEUTROPHILS # (AUTO) 3.4 10^3/uL (1.8-7.8); NEUTROPHILS % (AUTO) 69 % (42-75); PLATELET COUNT 183 10^3/uL (130-400)
[2022-12-14] MEDS ORDERED: FUROSEMIDE INJECTION 40 MG/4 ML VIAL IVP ONE (09:00)
[2022-12-14] MEDS ORDERED: cefTRIAXone IV/IM 1,000 MG in NS (IVPB) 50 ML 50 ML IV ONE (09:00)
--- NOTE | 2022-12-14 09:18 | Diagnostic Imaging Report ---
INDICATION: Shortness of breath. Portable chest 9:00 AM There is a tortuous aorta causing rightward deviation of the trachea. Heart size is normal. Lungs are clear. There are no effusions or pneumothoraces. IMPRESSION: Tortuous and elongated thoracic aorta displacing the trachea to the right. This is unchanged from previous CT dated 02/26/2020. Dictated by: Dictated on workstation # [id number]
[2022-12-14 09:19] LABS: INR 0.9 (0.8-1.4)
[2022-12-14 09:25] LABS: CHLORIDE 102 MMOL/L (98-107); POTASSIUM 3.9 MMOL/L (3.6-5.0); SODIUM 140 MMOL/L (135-145)
--- NOTE | 2022-12-14 09:33 | ED Respiratory ---
General Chief Complaint: Respiratory Problems Stated Complaint: SOB Nursing Triage Note: WOKE THIS AM WITH A C/O SOB. PATIENT ARRIVES FROM [facility] VIA EMS TO ROOM 05 WITH SAME COMPLIANT. IV, BREATHING TREATMENT, AND SOLUMEDROL IV GIVEN EN ROUTE. Source: patient, EMS, old records Exam Limitations: no limitations History of Present Illness Date Seen by Provider: Dec 14, 2022 Time Seen by Provider: 08:40 Initial Comments 77-year-old female with past medical history most notable for COPD with chronic hypoxic and hypercarbic respiratory failure on 2 to 3 L oxygen coming in via EMS from her assisted due to shortness of breath. She stated she started feeling more short of breath around 7:30 AM, her oxygen was apparently in the 70s. They placed her up to 4 L and she was in the mid 80s. On EMS arrival they noted she was 85% on 4 L. They placed her up to 6 L with improvement and gave her a DuoNeb with significant improvement in her work of breathing. They also gave her 125 mg of IV Solu-Medrol. Patient states she feels well now and close to her baseline. She does have a mildly productive cough she says has not really changed much, denies any chest pain, abdominal pain, nausea, vomiting, diarrhea, fever, chills, focal weakness or numbness, or any other concerns. She was seen in the ER here about a month ago, treated for a COPD exacerbation with steroids and antibiotics, she states that did help. She was at [place] just over a month ago and treated for the same. Allergies and Home Medications Allergies Coded Allergies: gabapentin (Verified Allergy, Unknown, 12/14/22) Patient Home Medication List Home Medication List Reviewed: Yes Cephalexin (Keflex) 500 Mg Capsule, 500 MG PO BID Prescribed by: SHARLENE FISHER on 09/27/19 1056 Doxycycline Hyclate (Doxycycline Hyclate) 100 Mg Tablet, 100 MG PO BID Prescribed by: FRANCISCO FATIMA on 11/17/22 172 Hydrocodone/Acetaminophen (Hydrocodone-Acetamin 5-325 mg) 1 Each Tablet, 1 EACH PO Q6H PRN for PAIN-SEVERE (8-10) Prescribed by: SHARLENE FISHER on 09/27/19 1056 Ibuprofen (Ibuprofen) 400 Mg Tablet, 400 MG PO Q6H PRN for PAIN Prescribed by: SHARLENE FISHER on 09/27/19 1056 Ipratropium/Albuterol Sulfate (Iprat-Albut 0.5-3(2.5) mg/3 ml) 0.5 Mg-3 Mg (2.5 Mg Base)/3 Ml Ampul.neb, 3 ML IH Q4H PRN for SHORTNESS OF BREATH Prescribed by: FRANCISCO FATIMA on 11/17/22 1726 Methylprednisolone (Methylprednisolone Dose Pack) 4 Mg Tab.ds.pk, 4 MG PO UD Prescribed by: FRANCISCO FATIMA on 11/17/22 1726 Ondansetron (Ondansetron Odt) 4 Mg Tab.rapdis, 4 MG PO Q6H PRN for NAUSE A/VOMITING-1ST LINE Prescribed by: SHARLENE FISHER on 02/26/20 0650 Prednisone (Prednisone) 20 Mg Tab, 40 MG PO DAILY Prescribed by: SHARLENE FISHER on 02/26/20 0650 Review of Systems Review of Systems Constitutional: No fever EENTM: no symptoms reported Respiratory: see HPI Cardiovascular: no symptoms reported Gastrointestinal: no symptoms reported Genitourinary: no symptoms reported Musculoskeletal: no symptoms reported Skin: no symptoms reported Psychiatric/Neurological: No Symptoms Reported Hematologic/Lymphatic: No Symptoms Reported Past Rbxczah-Enbzbx-Ivsrzs Hx Patient Social History Tobacco Use?: No Use of E-Cig and/or Vaping dev: No Substance use?: No Alcohol Use?: No Immunizations Up To Date Influenza Vaccine Up-to-Date: Yes; Up-to-Date First/Initial COVID19 Vaccinat: 5 shots Seasonal Allergies Seasonal Allergies: No Past Medical History Surgery/Hospitalization HX: COPD, CAD, ANXIETY Surgeries: Yes (AKA, Hip Replacement, ORIF) Abdominal, Orthopedic, Rectal Respiratory: Yes COPD Cardiac: Yes (AAA, Artierial Occlusion Lower Extremity, Thoracic aortic aneurysm) Aneurysm Neurological: Yes (alcohol withdrawal syndrome) Dementia Genitourinary: Yes (UTI's) Renal Failure Gastrointestinal: Yes Irritable Bowel Musculoskeletal: Yes Arthritis, Back Injury Endocrine: No HEENT: Yes Glaucoma Loss of Vision: Denies Hearing Impairment: Hard of Hearing Cancer: No Psychosocial: No Anxiety Integumentary: No Blood Disorders: No Adverse Reaction/Blood Tranf: No Family Medical History CAD Over 55 Years Old, Diabetes, Stroke Physical Exam Vital Signs - First Documented 12/14/22 08:40 Pulse Ox 95 O2 Delivery Nasal Cannula O2 Flow Rate 4.00 Capillary Refill : Less Than 3 Seconds Height: '" Weight: lbs. oz. kg; 28.00 BMI Method: General Appearance: WD/WN, no apparent distress Eyes: Bilateral Eye Normal Inspection HEENT: PERRL/EOMI, normal ENT inspection, pharynx normal Neck: non-tender, full range of motion, supple, normal inspection Respiratory: chest non-tender, no respiratory distress, no accessory muscle use, crackles, wheezing Cardiovascular: regular rate, rhythm Gastrointestinal: normal bowel sounds, non tender, soft; No distended, No guarding, No rebound Extremities: normal range of motion, non-tender, normal inspection, no pedal edema, no calf tenderness, normal capillary refill, other (L AKA) Neurologic/Psychiatric: no motor/sensory deficits, alert, normal mood/affect, oriented x 3 Skin: normal color, warm/dry Progress/Results/Core Measures Suspected Sepsis SIRS Temperature: Pulse: 102 Respiratory Rate: 20 Laboratory Tests 12/14/22 08:50: White Blood Count 5.0 Blood Pressure 108 /62 Mean: 77 Laboratory Tests 12/14/22 08:50: Creatinine 0.70, INR Comment 0.9, Platelet Count 183, Total Bilirubin 0.4 Results/Orders Lab Results Laboratory Tests Test 12/14/22 08:50 12/14/22 08:56 Range/Units White Blood Count 5.0 4.3-11.0 10^3/uL Red Blood Count 4.78 3.80-5.11 10^6/uL Hemoglobin 11.9 11.5-16.0 g/dL Hematocrit 39 35-52 % Mean Corpuscular Volume 82 80-99 fL Mean Corpuscular Hemoglobin 25 25-34 pg Mean Corpuscular Hemoglobin Concent 30 L 32-36 g/dL Red Cell Distribution Width 18.1 H 10.0-14.5 % Platelet Count 183 130-400 10^3/uL Mean Platelet Volume 10.5 9.0-12.2 fL Immature Granulocyte % (Auto) 0 % Neutrophils (%) (Auto) 69 42-75 % Lymphocytes (%) (Auto) 16 12-44 % Monocytes (%) (Auto) 9 0-12 % Eosinophils (%) (Auto) 4 0-10 % Basophils (%) (Auto) 1 0-10 % Neutrophils # (Auto) 3.4 1.8-7.8 10^3/uL Lymphocytes # (Auto) 0.8 L 1.0-4.0 10^3/uL Monocytes # (Auto) 0.5 0.0-1.0 10^3/uL Eosinophils # (Auto) 0.2 0.0-0.3 10^3/uL Basophils # (Auto) 0.1 0.0-0.1 10^3/uL Immature Granulocyte # (Auto) 0.0 0.0-0.1 10^3/uL Percent Immature Platelet Fraction 3.6 0.0-7.6 % Prothrombin Time 13.0 12.2-14.7 SEC INR Comment 0.9 0.8-1.4 Activated Partial Thromboplast Time 20 L 24-35 SEC Venous Blood pH 7.53 H 7.31-7.41 Venous Blood Partial Pressure CO2 43 40-52 MMHG Venous Blood HCO3 36 H 22-28 MMOL/L Sodium Level 140 135-145 MMOL/L Potassium Level 3.9 3.6-5.0 MMOL/L Chloride Level 102 98-107 MMOL/L Carbon Dioxide Level 28 21-32 MMOL/L Anion Gap 10 5-14 MMOL/L Blood Urea Nitrogen 7 7-18 MG/DL Creatinine 0.70 0.60-1.30 MG/DL Estimat Glomerular Filtration Rate 88 BUN/Creatinine Ratio 10 Glucose Level 191 H 70-105 MG/DL Calcium Level 9.4 8.5-10.1 MG/DL Corrected Calcium 10.4 H 8.5-10.1 MG/DL Total Bilirubin 0.4 0.1-1.0 MG/DL Aspartate Amino Transf (AST/SGOT) 21 5-34 U/L Alanine Aminotransferase (ALT/SGPT) 16 0-55 U/L Alkaline Phosphatase 88 40-136 U/L Troponin I < 0.30 <0.30 NG/ML Pro-B-Type Natriuretic Peptide 448.7 <450.0 PG/ML Total Protein 6.2 L 6.4-8.2 GM/DL Albumin 2.8 L 3.2-4.5 GM/DL Influenza Type A (RT-PCR) Not Detected Not Detecte Influenza Type B (RT-PCR) Not Detected Not Detecte SARS-CoV-2 RNA (RT-PCR) Not Detected Not Detecte My Orders Orders - FRANCISCO FATIMA MD Ed Iv/Invasive Line Start (12/14/22 08:48) Ekg Tracing (12/14/22 08:48) O2 (12/14/22 08:48) Cbc And Automated Diff (12/14/22 08:48) Comprehensive Metabolic Panel (12/14/22 08:48) Protime With Inr (12/14/22 08:48) Partial Thromboplastin Time (12/14/22 08:48) Probnp Fs (12/14/22 08:48) Troponin I Fs (12/14/22 08:48) Chest 1 View Ap/Pa Only (12/14/22 08:48) Influenza A And B By Pcr (12/14/22 08:48) Covid 19 Inhouse Test (12/14/22 08:48) Venous Blood Gas (12/14/22 08:48) Furosemide Injection (Furosemide Injec (12/14/22 09:00) Ceftriaxone Iv/Im (Ceftriaxone Iv/Im) (12/14/22 09:00) Doxycycline Hyclate Tablet (Doxycycline (12/14/22 08:58) Medications Given in ED Current Medications Medications Dose Ordered Sig/Katrina Route Start Time Stop Time Status Last Admin Dose Admin Ceftriaxone Sodium 1000 mg/ Sodium Chloride 50 ml @ 100 mls/hr ONCE ONCE IV 12/14/22 09:00 12/14/22 09:29 DC 12/14/22 09:19 100 MLS/HR Furosemide 20 mg ONCE ONCE IVP 12/14/22 09:00 12/14/22 09:10 DC 12/14/22 09:19 20 MG Vital Signs/I&O 12/14/22 12/14/22 12/14/22 08:40 08:44 08:44 Temp 37.1 Pulse 102 Resp 20 B/P (MAP) 108/62 (77) Pulse Ox 95 94 O2 Delivery Nasal Cannula Nasal Cannula Nasal Cannula O2 Flow Rate 4.00 3.00 3.00 Capillary Refill : Less Than 3 Seconds Blood Pressure Mean: 77 Progress Note : Progress Note 77yoF with above history coming in due to SOB. ABCs were intact and vitals were stable on presentation. Specifically, we are able to turn the patient down to her baseline 3 L oxygen, her saturation remained at 96% or greater. I discussed with the patient that with her degree of COPD, she really needs to stay probably around 91% and likely could be on 1 to 2 L. An IV was placed and basic labs were obtained and were significant for normal creatinine, negative troponin, proBNP lower than prior, normal white blood cell count. EKG ordered and int erpreted by me showing no acute ischemic changes. Chest x-ray ordered and interpreted by me showing no obvious pneumonia or pneumothorax. Given the productive cough with the wheezing prior and her history of COPD, she was given antibiotics. She already received a steroid and a DuoNeb per EMS and is already looking a lot better. She states she is at her baseline. Flu and COVID testing were negative as well. I believe she is otherwise stable for discharge with outpatient follow-up. She was sent home with strict return precautions. ECG Initial ECG Impression Date: Dec 14, 2022 Initial ECG Impression Time: 09:01 Initial ECG Rate: 99 Initial ECG Rhythm: Normal Sinus Comment Narrow QRS, normal axis, no significant ST changes or T wave abnormalities Diagnostic Imaging Diagonstic Imaging: Xray (chest) Comments [facility] [place] [place] NAME: [facility] REC#: [id number] PT STATUS: REG ER : 1945 PHYSICIAN: FRANCISCO FATIMA MD ADMIT DATE: 12/14/22/ER FS Draft Date of Exam:12/14/22 CHEST 1 VIEW AP/PA ONLY INDICATION: Shortness of breath. Portable chest 9:00 AM There is a tortuous aorta causing rightward deviation of the trachea. Heart size is normal. Lungs are clear. There are no effusions or pneumothoraces. IMPRESSION: Tortuous and elongated thoracic aorta displacing the trachea to the right. This is unchanged from previous CT dated 02/26/2020. Dictated on workstation # [id number] Dict: 12/14/22913 Trans: 12/14/22916 CV [id number] Interpreted by: ED DOS SANTOS MD Electronically signed by: Departure Impression Primary Impression: COPD with exacerbation Disposition: HOME, SELF-CARE Condition: Stable Departure-Patient Inst. Decision time for Depature: 10:10 Referrals: LIUDMILA GANDARA MD (PCP/Family) Primary Care Physician Patient Instructions: COPD Exacerbation, Adult ED Add. Discharge Instructions: This is consistent with an exacerbation of your COPD. You will be on another round of antibiotics and steroids. Please follow-up with your doctor within the next week to see if that is enough. You can turn your oxygen anywhere from 2 to 5 L as needed to keep your oxygen saturation above 90%. When you get to an episode where you are feeling bad like this again, it may be good to do 2 breathing treatments in a row. Scripts Methylprednisolone (Methylprednisolone Dose Pack) 4 Mg Tab.ds.pk 4 MG PO UD for 6 Days, #21 PKG PER DOSE PACK INSTRUCTIONS Prov: FRANCISCO FATIMA MD 12/14/22 Doxycycline Hyclate (Doxycycline Hyclate) 100 Mg Tablet 100 MG PO BID for 7 Days, #14 TAB 0 Refills Prov: FRANCISCO FATIMA MD 12/14/22 FRANCISCO FATIMA MD Dec 14, 2022 09:33
[2022-12-14 09:34] LABS: BUN/CREATININE RATIO 10; CARBON DIOXIDE 28 MMOL/L (21-32); GFR ESTIMATED 88; GLUCOSE 191 MG/DL (70-105)
[2022-12-14 09:35] LABS: ALANINE AMINOTRANSFERASE 16 U/L (0-55); ALBUMIN 2.8 GM/DL (3.2-4.5); ALKALINE PHOSPHATASE 88 U/L (40-136); BILIRUBIN,TOTAL 0.4 MG/DL (0.1-1.0); CALCIUM 9.4 MG/DL (8.5-10.1); TOTAL PROTEIN 6.2 GM/DL (6.4-8.2)
[2022-12-14] MEDS ORDERED: METH4TAB10 PO (10:01)
[2022-12-14] MEDS ORDERED: DOXY100T2 PO (10:01)
[2022-12-14 10:13] VITALS: BP 113/58
== END 2022-12-14 10:45 | disposition home or self-care (01) ==
LOC: ER FS 08:40 → EDUNIT# 08:40 → ER FS 10:45
DX: J44.1 Chronic obstructive pulmonary disease with (acute) exacerbation (principal); Z99.81 Dependence on supplemental oxygen; Z20.822 Contact with and (suspected) exposure to COVID-19
CPT/HCPCS: 36415; 71045; 80053; 82805; 83880; 84484; 85025; 85610; 85730; 87636; 93005; 96365; 96375